=== PATIENT | female | born 1990 | race Caucasian/White ===

== ENCOUNTER 2021-03-01 01:21 | Inpatient (IN) | payer OTHER ==
[2021-03-01] MEDS ORDERED: SODIUM CHLORIDE 0.9% 1000 ML 1,000 ML IV ONE (01:34)
--- NOTE | 2021-03-01 01:36 | Emergency Department Report ---
History of Present Illness - General Chief Complaint: Overdose Stated Complaint: SUICIDE ATTEMPT Time Seen by Provider: 03/01/21 01:21 Source: patient Mode of arrival: Stretcher Limitations: No Limitations - History of Present Illness Initial Comments: Patient is a 30-year-old female that presents emergency room for overdose. Patient brought in by EMS. EMS states the patient took 60 tablets of 500 mg Tylenol and 50 tablets of 25 mg Vistaril approximately 45 minutes prior to arrival. Patient's friend called EMS. Patient states that she was trying to kill herself. Patient states she does not want to live. Patient states she took all these medications with the intent to . Patient states she has been depressed. Patient states she feels tired. Patient states she does not want help. Patient states she wants to be left alone. Patient denies recent travel. Patient denies recent international travel. Patient denies exposure to the novel coronavirus. Patient denies sick contacts. Patient denies fever and chills. Patient denies cough. Patient denies diarrhea. Patient denies coming in contact with anybody with symptoms of the n ovel coronavirus. Complaint: intentional overdose -: Sudden Intent: suicide attempt How Overdose Was Discovered: called family/friend Associated Symptoms: depression Treatments Prior to Arrival: none - Related Data Allergies Allergy/AdvReac Type Severity Reaction Status Date / Time No Known Allergies Allergy Unverified 03/01/21 01:37 ED Review of Systems ROS: Stated complaint: SUICIDE ATTEMPT Other details as noted in HPI Constitutional: denies: chills, fever Eyes: denies: eye pain, eye discharge, vision change ENT: denies: ear pain, throat pain Respiratory: denies: cough, shortness of breath, wheezing Cardiovascular: denies: chest pain, palpitations Endocrine: no symptoms reported Gastrointestinal: denies: abdominal pain, nausea, diarrhea Genitourinary: denies: urgency, dysuria, discharge Musculoskeletal: denies: back pain, joint swelling, arthralgia Skin: denies: rash, lesions Neurological: denies: headache, weakness, paresthesias Psychiatric: as per HPI, depression, suicidal thoughts. denies: anxiety Hematological/Lymphatic: denies: easy bleeding, easy bruising ED Past Medical Hx - Past Medical History Previous Medical History?: Yes Hx Psychiatric Treatment: Yes - Surgical History Past Surgical History?: No - Family History Family history: no significant - Social History Smoking Status: Never Smoker Substance Use Type: None ED Physical Exam - General General appearance: in no apparent distress, lethargic - Head Head exam: Present: atraumatic, normocephalic - Eye Eye exam: Present: normal appearance - ENT ENT exam: Present: mucous membranes moist - Neck Neck exam: Present: normal inspection - Respiratory Respiratory exam: Present: normal lung sounds bilaterally. Absent: respiratory distress - Cardiovascular Cardiovascular Exam: Present: regular rate, normal rhythm. Absent: systolic murmur, diastolic murmur, rubs, gallop - GI/Abdominal GI/Abdominal exam: Present: soft, normal bowel sounds - Extremities Exam Extremities exam: Present: normal inspection - Back Exam Back exam: Present: normal inspection - Neurological Exam Neurological exam: Present: oriented X3 - Psychiatric Psychiatric exam: Present: depressed, flat affect, suicidal ideation - Skin Skin exam: Present: warm, dry, intact, normal color. Absent: rash ED Course Vital Signs 03/01/21 03/01/21 03/01/21 01:30 01:34 01:45 Temperature 98.3 F Pulse Rate 111 H 109 H 91 H Respiratory 29 H 20 17 Rate Blood Pressure 122/80 126/73 Blood Pressure 122/80 [Left] O2 Sat by Pulse 100 100 Oximetry 03/01/21 03/01/21 03/01/21 02:00 02:15 02:30 Temperature Pulse Rate 79 95 H 89 Respiratory 18 9 L 16 Rate Blood Pressure 114/58 109/79 112/67 Blood Pressure [Left] O2 Sat by Pulse 100 97 Oximetry 03/01/21 03/01/21 03/01/21 02:45 03:00 03:15 Temperature Pulse Rate 92 H 95 H 92 H Respiratory 18 20 19 Rate Blood Pressure 118/58 108/62 121/63 Blood Pressure [Left] O2 Sat by Pulse 97 99 94 Oximetry 03/01/21 03/01/21 03/01/21 03:30 03:45 04:00 Temperature Pulse Rate 92 H 90 100 H Respiratory 15 17 17 Rate Blood Pressure 118/68 104/59 101/68 Blood Pressure [Left] O2 Sat by Pulse 100 96 99 Oximetry 03/01/21 03/01/21 03/01/21 04:15 04:30 04:45 Temperature Pulse Rate 100 H 109 H 90 Respiratory 19 19 23 Rate Blood Pressure 109/66 116/73 129/74 Blood Pressure [Left] O2 Sat by Pulse 97 100 Oximetry 03/01/21 03/01/21 03/01/21 05:00 05:15 05:30 Temperature Pulse Rate 88 103 H 94 H Respiratory 17 21 17 Rate Blood Pressure 120/68 120/78 118/73 Blood Pressure [Left] O2 Sat by Pulse 94 99 100 Oximetry - Reevaluation(s) Reevaluation #1: Initial evaluation done. The nurse will contact poison control. Patient placed on a 1013. 03/01/21 01:32 Reevaluation #2: Recommendations have been received from poison control. Poison control recommends activated charcoal and the patient is not able to tolerate the p.o. intake and NG will be placed. 03/01/21 01:45 Reevaluation #3: Patient was able to take the activated charcoal orally. 03/01/21 02:32 Reevaluation #4: I discussed all results with patient. I discussed plan of care with patient. Patient agrees with plan of care and admission. Patient to be admitted to the hospitalist service. 03/01/21 03:33 - Consultations Consultation #1: Poison control consulted. 03/01/21 01:33 JOSELIN JOY Female : 1990 MedRec# [id number] 03/01/21 01:35 (created 03/01/21 03:14) - Nurse Note by PHYLLIS BURT Acct Num: [id number] : 1990 Patient Age: 30 Poison Control called and here are there recommendations: Recommendation 1. Acetaminophen- can cause hepatotoxicity, abd pain, n/v 2. Hydroxyzine- can cause tachycardia, seizures, hyperthermia, QRS widening. Plan 1. Maintain Airway 2. Gave activated charcoal 1gm/kg as long as the pt is not risk for aspiration or sedated. 3. Labs: Tylenol Level, CMP, CBC, INR, EKG, Repeat Tyleno level after 4 hours @ 4:35am 4. Symptomatic, supportive care. 5. For tachycardia agitation, seizures use Benzo 6. For n/v gave anti emetic and replace fluids. 7. If QRS > 100msec, call back Poison Control. 8. If QTC > 500 msec optimize electrolytes: K- 4.0, Mg- 2.0, Ca- 9.0 9. Call back Poison Control after the repeat Tylenol Level after 4 hours of for any abnormal labs. Talked to Tyron of Poison Control. Initialized on 03/01/21 03:14 - END OF NOTE Consultation #2: I discussed again with poison control the acetaminophen levels and they agree to the acetylcysteine being given. 03/01/21 03:29 Consultation #3: Hospitalist consulted for admission. Hospitalist to admit patient. 03/01/21 03:32 ED Medical Decision Making - Lab Data Result diagrams: 03/01/21 01:39 03/01/21 01:39 - EKG Data -: EKG Interpreted by Me EKG shows normal: sinus rhythm, axis, intervals, QRS complexes, ST-T waves Rate: normal - Medical Decision Making Patient is a 30-year-old female that presents emergency room for a suicide attempt by overdose. Patient took 60 tablets of 500 mg Tylenol and 50 tablets of 25 mg of Vistaril. Patient states she wants to . Patient states she does not want any help and just wants to be left alone. Patient brought in by EMS. Patient placed on a 1013 after initial evaluation. Poison control contacted immediately after initial evaluation. Recommendations were received. Activated charcoal given to patient and the patient tolerated oral activated charcoal without the NG tube. Patient was given 100 g of activated charcoal with sorbitol. Patient given IV fluids. Patient lethargic but easily arousable. Patient's labs were done which was unremarkable except for elevated Tylenol level. Based on the elevation Tylenol level I discussed with control and they agreed to moving forward with giving acetylcysteine to the patient. Patient medical consult reviewed x1 in the ER. Patient admitted to the hospital service for further evaluation treatment. Patient will placed in the ICU. Pulse control updated with the patient's conditions and labs multiple times while in the ER. Critical care time documented due to the multiple reassessments, prolonged time at the bedside, interpretation of diagnostics and labs. - Differential Diagnosis Suicide attempt, overdose, depression Critical Care Time: Yes Critical care time in (mins) excluding proc time.: 80 Critical care attestation.: If time is entered above; I have spent that time in minutes in the direct care of this critically ill patient, excluding procedure time. Critical Care Time: 80 minutes ED Disposition Clinical Impression: Suicidal ideations Overdose of acetaminophen Qualifiers: Encounter type: initial encounter Injury intent: intentional self-harm Qualified Code(s): T39.1X2A - Poisoning by 4-Aminophenol derivatives, intentional self-harm, initial encounter Suicide attempt by acetaminophen overdose Qualifiers: Encounter type: initial encounter Qualified Code(s): T39.1X2A - Poisoning by 4- Aminophenol derivatives, intentional self-harm, initial encounter Disposition: 09 OP ADMIT IP TO THIS HOSP Is pt being admited?: Yes Does the pt Need Aspirin: No Condition: Critical Time of Disposition: 03:34
[2021-03-01] MEDS ORDERED: CHARCOAL/SORBITOL SOLUTION 25 GM/120 ML PO ONE (01:45)
[2021-03-01 02:23] LABS: Alanine Aminotransferase 16 units/L (7-56); Albumin 4.3 g/dL (3.9-5); Blood Urea Nitrogen 3 mg/dL (7-17); Hemolysis Index 0
[2021-03-01 02:32] LABS: Basophils # (Auto) 0.1 K/mm3 (0.0-0.1); Basophils % (Auto) 0.6 % (0.0-1.8); Eosinophils # (Auto) 0.1 K/mm3 (0.0-0.4); Eosinophils % (Auto) 1.1 % (0.0-4.3); Hematocrit 28.2 % (30.3-42.9); Hemoglobin 8.5 gm/dl (10.1-14.3); Lymphocytes # (Auto) 3.8 K/mm3 (1.2-5.4); Lymphocytes % (Auto) 44.1 % (13.4-35.0); Mean Corpuscular HGB Conc 30 % (30-34); Monocytes # (Auto) 0.5 K/mm3 (0.0-0.8); Monocytes % (Auto) 6.2 % (0.0-7.3); Platelet Count 404 K/mm3 (140-440); Red Blood Count 4.26 M/mm3 (3.65-5.03); Red Cell Distribution Width 18.3 % (13.2-15.2)
[2021-03-01 02:40] LABS: BUN/Creatinine Ratio 8
[2021-03-01 02:43] LABS: INR 1.04 (0.87-1.13); Partial Thromboplastin Time 30.8 Sec. (24.2-36.6)
[2021-03-01 02:55] LABS: Mean Corpuscular Volume 66 fl (79-97)
[2021-03-01 03:29] LABS: Amphetamine Screen,Urine PRESUMPTIVE NEGATIVE; Benzodiazepines Screen,Urine PRESUMPTIVE NEGATIVE; Cannabinoid Screen,Urine PRESUMPTIVE NEGATIVE; Cocaine Screen,Urine PRESUMPTIVE NEGATIVE; Methadone Screen,Urine PRESUMPTIVE NEGATIVE; Opiate Screen,Urine PRESUMPTIVE NEGATIVE
[2021-03-01 03:35] LABS: HCG Qualitative,Urine Negative (Negative)
[2021-03-01 03:37] LABS: Bilirubin,Urine NEG (Negative); Blood,Urine NEG (Negative); Color,Urine Colorless (Yellow); Protein,Urine <15 mg/dL mg/dL (Negative); Urobilinogen,Urine < 2.0 mg/dL (<2.0); WBC,Urine < 1.0 /HPF (0.0-6.0)
[2021-03-01] MEDS ORDERED: ACETADOTE IV ONE ×3 (03:45→08:00)
[2021-03-01] MEDS ORDERED: WATER IV ONE ×3 (03:45→08:00)
[2021-03-01] MEDS ORDERED: DEXTROSE 5% IV ONE ×3 (03:45→08:00)
[2021-03-01] MEDS ORDERED: MAGNESIUM HYDROXIDE (MOM) ORAL LIQD UDC PO PRN (04:21)
[2021-03-01] MEDS ORDERED: ACETAMINOPHEN 325 MG TAB PO PRN (04:21)
[2021-03-01] MEDS ORDERED: ONDANSETRON 4 MG/2 ML INJ IV PRN (04:21)
[2021-03-01] MEDS ORDERED: SODIUM CHLORIDE 0.9% 1000 ML 1,000 ML IV SCH (04:30)
--- NOTE | 2021-03-01 04:33 | History and Physical Report ---
History of Present Illness Date of examination: 03/01/21 Date of admission: 03/01/21 03:33 Chief complaint: Drug Overdose History of present illness: Patient is a 30-year-old female with known history of depression brought into the emergency room today by EMS with drug overdose. Patient a set of taking 60 tablets of 500 mg acetaminophen and 50 tablets of 20 mg Vistaril approximately 45 minutes prior to arrival in the emergency room. Patient's friends were said to have called EMS as patient had indicated that she wanted to end her life and does not want to live anymore. She has been depressed and just feels tired and wants to be left alone without getting any help. She appeared drowsy during this history and physical. Patient denies any fever or chills, no nausea vomiting, no abdominal pain, no chest pain or shortness of breath, no headache or dizziness. Denies any sick contacts or any recent travel. Denies any contact with anyone with COVID-19. Upon arrival in the emergency room patient was given some activated charcoal. Poison control was also notified and recommendations were given for administration of acetylcysteine. Patient is being admitted with drug overdose with attempted suicide. Past History Past Medical History: other (Depression) Past Surgical History: denies: No surgical history Social history: denies: no significant social history Family history: denies: no significant family history Medications and Allergies Allergies Allergy/AdvReac Type Severity Reaction Status Date / Time No Known Allergies Allergy Unverified 03/01/21 01:37 Active Meds: Active Medications Heparin Sodium (Porcine) (Heparin 5,000 Unit/1 Ml Vial) 5,000 unit SUB-Q Q8HR [facility] Acetylcysteine 10,200 mg/ (Dextrose) 251 mls @ 251 mls/hr IV ONCE ONE Stop: 03/01/21 04:44 Last Admin: 03/01/21 03:58 Dose: 251 mls/hr Documented by: Acetylcysteine 3,400 mg/ (Dextrose) 517 mls @ 129.25 mls/hr IV ONCE ONE Stop: 03/01/21 08:44 Acetylcysteine 6,800 mg/ (Dextrose) 1,034 mls @ 64.625 mls/hr IV ONCE ONE Stop: 03/01/21 23:59 Sodium Chloride (Nacl 0.9% 1000 Ml) 1,000 mls @ 125 mls/hr IV DIRECT ERLINDA Magnesium Hydroxide (Magnesium Hydroxide (Mom) Oral Liqd Udc) 30 ml PO Q4H PRN PRN Reason: Constipation Ondansetron HCl (Ondansetron 4 Mg/2 Ml Inj) 4 mg IV Q8H PRN PRN Reason: Nausea And Vomiting Sodium Chloride (Sodium Chloride 0.9% 10 Ml Flush Syringe) 10 ml IV BID ERLINDA Sodium Chloride (Sodium Chloride 0.9% 10 Ml Flush Syringe) 10 ml IV PRN PRN PRN Reason: LINE FLUSH Review of Systems Constitutional: no fever, no chills Ears, nose, mouth and throat: no nasal congestion, no sore throat Cardiovascular: no chest pain, no palpitations Respiratory: no cough, no shortness of breath Gastrointestinal: no nausea, no vomiting, no diarrhea Genitourinary Female: no pelvic pain, no flank pain, no dysuria Musculoskeletal: no neck pain, no low back pain Integumentary: no rash, no pruritis Neurological: no headaches, no confusion Psychiatric: suicidal ideation, depression, no anxiety Endocrine: no polyphagia, no polydipsia, no polyuria, no nocturia Exam - Constitutional Vitals: Temp Pulse Resp BP Pulse Ox 98.3 F 100 H 17 101/68 99 03/01/21 01:34 03/01/21 04:00 03/01/21 04:00 03/01/21 04:00 03/01/21 04:00 General appearance: Present: no acute distress, well-nourished - EENT Eyes: Present: PERRL, EOM intact. Absent: scleral icterus ENT: hearing intact, clear oral mucosa, dentition normal - Neck Neck: Present: supple, normal ROM - Respiratory Respiratory effort: normal Respiratory: bilateral: CTA - Cardiovascular Rhythm: regular Heart Sounds: Present: S1 & S2. Absent: systolic murmur, diastolic murmur - Extremities Extremities: no ischemia, pulses intact, pulses symmetrical, No edema, normal temperature, normal color, Full ROM Peripheral Pulses: within normal limits - Abdominal General gastrointestinal: Present: soft, non-tender, non-distended, normal bowel sounds. Absent: mass - Integumentary Integumentary: Present: clear, warm, dry, normal turgor. Absent: rash - Musculoskeletal Musculoskeletal: strength equal bilaterally - Psychiatric Psychiatric: cooperative, depressed, other (Appeared drowsy) - Neurologic Neurologic: CNII-XII intact, no focal deficits, moves all extremities Results - Labs CBC & Chem 7: 03/01/21 01:39 03/01/21 01:39 Labs: Abnormal lab results 03/01/21 03/01/21 03/01/21 Range/Units 01:38 01:39 01:39 Hgb 8.5 L (10.1-14.3) gm/dl Hct 28.2 L (30.3-42.9) % MCV 66 L (79-97) fl MCH 20 L (28-32) pg RDW 18.3 H (13.2-15.2) % Lymph % (Auto) 44.1 H (13.4-35.0) % Potassium 3.5 L (3.6-5.0) mmol/L Carbon Dioxide 15 L (22-30) mmol/L BUN 3 L (7-17) mg/dL Creatinine 0.4 L (0.6-1.2) mg/dL Ur Specific [place] 1.002 L (1.003-1.030) Salicylates (2.8-20.0) mg/dL Acetaminophen (10.0-30.0) ug/mL 03/01/21 03/01/21 Range/Units 01:39 01:39 Hgb (10.1-14.3) gm/dl Hct (30.3-42.9) % MCV (79-97) fl MCH (28-32) pg RDW (13.2-15.2) % Lymph % (Auto) (13.4-35.0) % Potassium (3.6-5.0) mmol/L Carbon Dioxide (22-30) mmol/L BUN (7-17) mg/dL Creatinine (0.6-1.2) mg/dL Ur Specific [place] (1.003-1.030) Salicylates < 0.3 L (2.8-20.0) mg/dL Acetaminophen 181.4 H (10.0-30.0) ug/mL Assessment and Plan - Patient Problems (1) Overdose of acetaminophen Current Visit: Yes Status: Acute Qualifiers: Encounter type: initial encounter Injury intent: intentional self-harm Qu alified Code(s): T39.1X2A - Poisoning by 4-Aminophenol derivatives, intentional self-harm, initial encounter Plan to address problem: Patient started on acetylcysteine according to protocol. We will monitor labs including liver enzymes. (2) Suicide attempt by acetaminophen overdose Current Visit: Yes Status: Acute Qualifiers: Encounter type: initial encounter Qualified Code(s): T39.1X2A - Poisoning by 4-Aminophenol derivatives, intentional self-harm, initial encounter Plan to address problem: Consult placed to mental health for evaluation and recommendations. (3) DVT prophylaxis Current Visit: Yes Status: Acute Plan to address problem: Patient placed on subcutaneous heparin. (4) Full code status Current Visit: Yes Status: Acute Plan to address problem: Patient is full code.
[2021-03-01] MEDS: HEPARIN 5,000 UNIT/1 ML VIAL SUB-Q SCH ×2 (05:44→22:57)
[2021-03-01] MEDS ORDERED: POTASSIUM CHLORIDE 10 MEQ 10 MEQ/100 ML BAG IV ONE (07:30)
--- NOTE | 2021-03-01 09:48 | Event Note ---
Date: 03/01/21 This is a follow-up from an admission earlier this morning. Patient seen and examined. We will continue to plan as outlined in H&P. Total visit time equals 35 minutes with greater than 50% spent on coordination of care and counseling.
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
[2021-03-02 01:34] LABS: INR 1.08 (0.87-1.13)
[2021-03-02 01:47] LABS: Alanine Aminotransferase 12 units/L (7-56); Albumin 3.8 g/dL (3.9-5); Blood Urea Nitrogen 4 mg/dL (7-17); Calcium 8.8 mg/dL (8.4-10.2); Hemolysis Index 0
[2021-03-02 02:02] LABS: BUN/Creatinine Ratio 13
[2021-03-02] MEDS: HEPARIN 5,000 UNIT/1 ML VIAL SUB-Q SCH ×4 (06:10→22:49)
[2021-03-02 06:13] LABS: Blood Urea Nitrogen 4 mg/dL (7-17); Calcium 8.7 mg/dL (8.4-10.2); Hemolysis Index 5
[2021-03-02 06:28] LABS: BUN/Creatinine Ratio 10
[2021-03-02 06:31] LABS: INR 1.08 (0.87-1.13)
[2021-03-02 06:35] LABS: Eosinophils # (Auto) 0.1 K/mm3 (0.0-0.4); Eosinophils % (Auto) 1.9 % (0.0-4.3); Hematocrit 25.2 % (30.3-42.9); Hemoglobin 7.6 gm/dl (10.1-14.3); Mean Corpuscular HGB Conc 30 % (30-34); Monocytes # (Auto) 0.6 K/mm3 (0.0-0.8); Platelet Count 375 K/mm3 (140-440); Red Blood Count 3.81 M/mm3 (3.65-5.03); Red Cell Distribution Width 18.2 % (13.2-15.2)
[2021-03-02 06:36] LABS: Basophils % (Auto) 0.5 % (0.0-1.8); Lymphocytes # (Auto) 2.9 K/mm3 (1.2-5.4); Lymphocytes % (Auto) 45.3 % (13.4-35.0); Mean Corpuscular Volume 66 fl (79-97)
--- NOTE | 2021-03-02 08:39 | Progress Note ---
Assessment and Plan Assessment and plan: Acetaminophen overdose. Suicide attempt/ideation. EtOH abuse. 03/02: Acetaminophen level on admission (03/01) was 181 and 115 3 hours later. Acetaminophen this morning at 1 AM 5.0. Check LFTs and consult GI for further evaluation. Continue Acetadote. Psychiatry following History Interval history: No new issues overnight. Hospitalist Physical - Constitutional Vitals: Temp Pulse Resp BP Pulse Ox 97.9 F 94 H 14 137/100 100 03/02/21 08:00 03/02/21 08:00 03/02/21 08:00 03/02/21 08:00 03/02/21 08:00 General appearance: Present: no acute distress, well-nourished - EENT Eyes: Present: PERRL, EOM intact ENT: hearing intact, clear oral mucosa, dentition normal - Neck Neck: Present: supple, normal ROM - Respiratory Respiratory effort: normal Respiratory: bilateral: CTA - Cardiovascular Rhythm: regular Heart Sounds: Present: S1 & S2. Absent: gallop, rub - Extremities Extremities: no ischemia, No edema, Full ROM - Abdominal General gastrointestinal: soft, non-tender, non-distended, normal bowel sounds - Integumentary Integumentary: Present: clear, warm, dry - Neurologic Neurologic: CNII-XII intact, moves all extremities Results - Labs CBC & Chem 7: 03/02/21 04:20 03/02/21 04:20 Labs: Laboratory Last Values WBC 6.3 K/mm3 (4.5-11.0) 03/02/21 04:20 RBC 3.81 M/mm3 (3.65-5.03) 03/02/21 04:20 Hgb 7.6 gm/dl (10.1-14.3) L 03/02/21 04:20 Hct 25.2 % (30.3-42.9) L 03/02/21 04:20 MCV 66 fl (79-97) L 03/02/21 04:20 MCH 20 pg (28-32) L 03/02/21 04:20 MCHC 30 % (30-34) 03/02/21 04:20 RDW 18.2 % (13.2-15.2) H 03/02/21 04:20 Plt Count 375 K/mm3 (140-440) 03/02/21 04:20 Lymph % (Auto) 45.3 % (13.4-35.0) H 03/02/21 04:20 [place] % (Auto) 9.0 % (0.0-7.3) H 03/02/21 04:20 Eos % (Auto) 1.9 % (0.0-4.3) 03/02/21 04:20 Baso % (Auto) 0.5 % (0.0-1.8) 03/02/21 04:20 Lymph # (Auto) 2.9 K/mm3 (1.2-5.4) 03/02/21 04:20 [place] # (Auto) 0.6 K/mm3 (0.0-0.8) 03/02/21 04:20 Eos # (Auto) 0.1 K/mm3 (0.0-0.4) 03/02/21 04:20 Baso # (Auto) 0.0 K/mm3 (0.0-0.1) 03/02/21 04:20 Seg Neutrophils % 43.3 % (40.0-70.0) 03/02/21 04:20 Seg Neutrophils # 2.7 K/mm3 (1.8-7.7) 03/02/21 04:20 PT 13.9 Sec. (12.2-14.9) 03/02/21 04:20 INR 1.08 (0.87-1.13) 03/02/21 04:20 APTT 30.8 Sec. (24.2-36.6) 03/01/21 01:47 Sodium 139 mmol/L (137-145) 03/02/21 04:20 Potassium 3.3 mmol/L (3.6-5.0) L 03/02/21 04:20 Chloride 105.7 mmol/L (98-107) 03/02/21 04:20 Carbon Dioxide 25 mmol/L (22-30) 03/02/21 04:20 Anion Gap 12 mmol/L 03/02/21 04:20 BUN 4 mg/dL (7-17) L 03/02/21 04:20 Creatinine 0.4 mg/dL (0.6-1.2) L 03/02/21 04:20 Estimated GFR > 60 ml/min 03/02/21 04:20 BUN/Creatinine Ratio 10 % 03/02/21 04:20 Glucose 96 mg/dL (65-100) 03/02/21 04:20 Calcium 8.7 mg/dL (8.4-10.2) 03/02/21 04:20 Total Bilirubin 0.30 mg/dL (0.1-1.2) 03/02/21 00:40 AST 12 units/L (5-40) 03/02/21 00:40 ALT 12 units/L (7-56) 03/02/21 00:40 Alkaline Phosphatase 44 units/L (35-129) 03/02/21 00:40 Total Protein 6.7 g/dL (6.3-8.2) 03/02/21 00:40 Albumin 3.8 g/dL (3.9-5) L 03/02/21 00:40 Albumin/Globulin Ratio 1.3 % 03/02/21 00:40 Urine Color Colorless (Yellow) 03/01/21 01:38 Urine Turbidity Clear (Clear) 03/01/21 01:38 Urine pH 6.0 (5.0-7.0) 03/01/21 01:38 Ur Specific [place] 1.002 (1.003-1.030) L 03/01/21 01:38 Urine Protein <15 mg/dl mg/dL (Negative) 03/01/21 01:38 Urine Glucose (UA) Neg mg/dL (Negative) 03/01/21 01:38 Urine Ketones Neg mg/dL (Negative) 03/01/21 01:38 Urine Blood Neg (Negative) 03/01/21 01:38 Urine Nitrite Neg (Negative) 03/01/21 01:38 Ur Reducing Substances Not Reportable 03/01/21 01:38 Urine Bilirubin Neg (Negative) 03/01/21 01:38 Urine Ictotest Not Reportable 03/01/21 01:38 Urine Urobilinogen < 2.0 mg/dL (<2.0) 03/01/21 01:38 Ur Leukocyte Esterase Neg (Negative) 03/01/21 01:38 Urine WBC (Auto) < 1.0 /HPF (0.0-6.0) 03/01/21 01:38 Urine RBC (Auto) 0.0 /HPF (0.0-6.0) 03/01/21 01:38 Urine HCG, Qual Negative (Negative) 03/01/21 01:38 Salicylates < 0.3 mg/dL (2.8-20.0) L 03/01/21 01:39 Urine Opiates Screen Presumptive negative 03/01/21 01:38 Urine Methadone Screen Presumptive negative 03/01/21 01:38 Acetaminophen 5.0 ug/mL (10.0-30.0) L 03/02/21 00:40 Ur Barbiturates Screen Presumptive negative 03/01/21 01:38 Ur Phencyclidine Scrn Presumptive negative 03/01/21 01:38 Ur Amphetamines Screen Presumptive negative 03/01/21 01:38 U Benzodiazepines Scrn Presumptive negative 03/01/21 01:38 Urine Cocaine Screen Presumptive negative 03/01/21 01:38 U Marijuana (THC) Screen Presumptive negative 03/01/21 01:38 Drugs of Abuse Note Disclamer 03/01/21 01:38 Plasma/Serum Alcohol 0.16 % (0-0.07) H 03/01/21 04:40 [place]yon/IV: Voiding Method Toilet Active Medications - Current Medications Current Medications: Generic Name Dose Route Start Last Admin Trade Name Freq PRN Reason Stop Dose Admin Heparin Sodium (Porcine) 5,000 unit 03/01/21 06:00 03/02/21 06:10 Heparin 5,000 Unit/1 Ml Vial SUB-Q 5,000 unit Q8HR ERLINDA Administration Sodium Chloride 1,000 mls @ 125 mls/hr 03/01/21 04:30 03/01/21 23:00 Nacl 0.9% 1000 Ml IV 125 mls/hr DIRECT ERLINDA Administration Magnesium Hydroxide 30 ml 03/01/21 04:21 Magnesium Hydroxide (Mom) Oral Liqd Udc PO Q4H PRN Constipation Ondansetron HCl 4 mg 03/01/21 04:21 03/01/21 04:45 Ondansetron 4 Mg/2 Ml Inj IV 4 mg Q8H PRN Administration Nausea And Vomiting Sodium Chloride 10 ml 03/01/21 10:00 03/01/21 22:58 Sodium Chloride 0.9% 10 Ml Flush Syringe IV 10 ml BID ERLINDA Administration Sodium Chloride 10 ml 03/01/21 04:21 Sodium Chloride 0.9% 10 Ml Flush Syringe IV PRN PRN LINE FLUSH
[2021-03-02] MEDS ORDERED: POTASSIUM CHLORIDE ER 20 MEQ TAB PO ONE (09:11)
--- NOTE | 2021-03-02 10:07 | Gastroenterology Consultation ---
History of Present Illness - Reason for Consult Consult date: 03/02/21 Tylenol OD Requesting physician: BRIAN TURNER - History of Present Illness The patient is a 30 yo female who presented to the ER after taking "a whole bottle" of tylenol in an OD attempt. In the ER notes, it was about 50 tylenol and vistaril tablets as well; currently she states she spit out the vistaril and only took the tylenol. Of note, her EtOH level was also elevated; a UDS was negative, but there is a hx of cocaine in the past. The patient states she also attempted suicide in 2018 with tylenol, and was hospitalized in [place]; she does not know the details, but was not evaluated for liver transplant. She currently has no N/V, bleeding, abdominal pain, confusion or delerium. Past History Past Medical History: other (Depression; prior suicide attempt (2018)) Past Surgical History: denies: No surgical history Social history: denies: no significant social history Family history: denies: no significant family history Medications and Allergies Allergies Allergy/AdvReac Type Severity Reaction Status Date / Time No Known Allergies Allergy Unverified 03/01/21 01:37 Home Medications Medication Instructions Recorded Confirmed Last Taken Type No Known Home Medications [No 03/01/21 03/01/21 Unknown History Reported Home Medications] Active Meds: Active Medications Heparin Sodium (Porcine) (Heparin 5,000 Unit/1 Ml Vial) 5,000 unit SUB-Q Q8HR [facility] Last Admin: 03/02/21 06:10 Dose: 5,000 unit Documented by: Acetylcysteine 10,200 mg/ (Dextrose) 251 mls @ 251 mls/hr IV ONCE ONE Stop: 03/02/21 11:29 Magnesium Hydroxide (Magnesium Hydroxide (Mom) Oral Liqd Udc) 30 ml PO Q4H PRN PRN Reason: Constipation Multivitamins (Multivitamins ,Therapeutic Tab) 1 each PO QDAY [facility] Ondansetron HCl (Ondansetron 4 Mg/2 Ml Inj) 4 mg IV Q8H PRN PRN Reason: Nausea And Vomiting Last Admin: 03/01/21 04:45 Dose: 4 mg Documented by: Sodium Chloride (Sodium Chloride 0.9% 10 Ml Flush Syringe) 10 ml IV BID [facility] Last Admin: 03/01/21 22:58 Dose: 10 ml Documented by: Sodium Chloride (Sodium Chloride 0.9% 10 Ml Flush Syringe) 10 ml IV PRN PRN PRN Reason: LINE FLUSH I HAVE REVIEWED AND RECONCILED ALL MEDICATIONS Review of Systems - Review of Systems All systems: negative (as noted in the HPI.) Exam - Constitutional Vital Signs: Temp Pulse Resp BP Pulse Ox 97.9 F 94 H 14 137/100 100 03/02/21 08:00 03/02/21 08:00 03/02/21 08:00 03/02/21 08:00 03/02/21 08:00 General appearance: no acute distress - EENT Eyes: PERRL, EOM intact - Neck Neck: supple, normal ROM - Respiratory Respiratory effort: normal Respiratory: bilateral: CTA - Cardiovascular Rhythm: regular Heart Sounds: Present: S1 & S2 Extremities: no ischemia, No edema - Gastrointestinal General gastrointestinal: Present: soft, non-tender, non-distended - Integumentary Integumentary: Present: clear, warm, dry - Neurologic Neurological: alert and oriented x3, other (No asterixis) - Labs CBC & Chem 7: 03/02/21 04:20 03/02/21 04:20 Lab Results: Laboratory Results - last 24 hr 03/02/21 03/02/21 03/02/21 00:40 00:40 00:40 WBC RBC Hgb Hct MCV MCH MCHC RDW Plt Count Lymph % (Auto) [place] % (Auto) Eos % (Auto) Baso % (Auto) Lymph # (Auto) [place] # (Auto) Eos # (Auto) Baso # (Auto) Seg Neutrophils % Seg Neutrophils # PT 13.9 INR 1.08 Sodium 139 Potassium 3.8 Chloride 106.3 Carbon Dioxide 23 D Anion Gap 14 BUN 4 L Creatinine 0.3 L Estimated GFR > 60 BUN/Creatinine Ratio 13 Glucose 81 Calcium 8.8 Total Bilirubin 0.30 AST 12 ALT 12 Alkaline Phosphatase 44 Total Protein 6.7 Albumin 3.8 L Albumin/Globulin Ratio 1.3 Acetaminophen 5.0 L 03/02/21 03/02/21 03/02/21 04:20 04:20 04:20 WBC 6.3 RBC 3.81 Hgb 7.6 L Hct 25.2 L MCV 66 L MCH 20 L MCHC 30 RDW 18.2 H Plt Count 375 Lymph % (Auto) 45.3 H [place] % (Auto) 9.0 H Eos % (Auto) 1.9 Baso % (Auto) 0.5 Lymph # (Auto) 2.9 [place] # (Auto) 0.6 Eos # (Auto) 0.1 Baso # (Auto) 0.0 Seg Neutrophils % 43.3 Seg Neutrophils # 2.7 PT 13.9 INR 1.08 Sodium 139 Potassium 3.3 L Chloride 105.7 Carbon Dioxide 25 Anion Gap 12 BUN 4 L Creatinine 0.4 L Estimated GFR > 60 BUN/Creatinine Ratio 10 Glucose 96 Calcium 8.7 Total Bilirubin AST ALT Alkaline Phosphatase Total Protein Albumin Albumin/Globulin Ratio Acetaminophen Assessment and Plan - Patient Problems (1) Suicide attempt by acetaminophen overdose Current Visit: Yes Status: Acute Qualifiers: Encounter type: initial encounter Qualified Code(s): T39.1X2A - Poisoning by 4-Aminophenol derivatives, intentional self-harm, initial encounter Plan to address problem: - The patient has completed acetadote, and has a normal INR, LFTs, and no signs of encephalopathy. - OK to transfer to floor for 24 more hours; if labs tomorrow OK, then may d/c to home or psych facility. - Will stop IV fluids, advance diet, and place on MVI. - If signs of decompensation, will contact liver transplant center.
[2021-03-02] MEDS ORDERED: DEXTROSE 5% IV ONE (10:30)
[2021-03-02] MEDS ORDERED: ACETADOTE IV ONE (10:30)
[2021-03-02] MEDS ORDERED: WATER IV ONE (10:30)
[2021-03-02] MEDS: MULTIVITAMINS ,THERAPEUTIC TAB PO SCH (12:21)
[2021-03-02 14:58] LABS: Alanine Aminotransferase 12 units/L (7-56); Albumin 3.5 g/dL (3.9-5)
[2021-03-02 15:00] LABS: Bilirubin,Direct < 0.2 mg/dL (0-0.2)
--- NOTE | 2021-03-02 18:24 | Event Note ---
Date: 03/02/21 Admitted to ICU for drug OD but doing better and transferred out of ICU before my evaluation - please re-consult as necessary
[2021-03-03] MEDS: HEPARIN 5,000 UNIT/1 ML VIAL SUB-Q SCH ×3 (05:40→22:18)
--- NOTE | 2021-03-03 08:06 | Progress Note ---
Assessment and Plan Assessment and plan: Acetaminophen overdose. Suicide attempt/ideation. EtOH abuse. 03/02: Acetaminophen level on admission (03/01) was 181 and 115 3 hours later. Acetaminophen this morning at 1 AM 5.0. Check LFTs and consult GI for further evaluation. Continue Acetadote. Psychiatry following 03/03: Follow-up LFTs as patient is likely stable from liver/GI standpoint. Continue 1013. Await psychiatry recommendations for disposition. History Interval history: No new issues overnight. Hospitalist Physical - Constitutional Vitals: Temp Pulse Resp BP Pulse Ox 98.2 F 73 12 117/81 99 03/03/21 06:31 03/03/21 06:31 03/03/21 06:31 03/03/21 06:31 03/03/21 06:31 General appearance: Present: no acute distress, well-nourished - EENT Eyes: Present: PERRL, EOM intact ENT: hearing intact, clear oral mucosa, dentition normal - Neck Neck: Present: supple, normal ROM - Respiratory Respiratory effort: normal Respiratory: bilateral: CTA - Cardiovascular Rhythm: regular Heart Sounds: Present: S1 & S2. Absent: gallop, rub - Extremities Extremities: no ischemia, No edema, Full ROM - Abdominal General gastrointestinal: soft, non-tender, non-distended, normal bowel sounds - Integumentary Integumentary: Present: clear, warm, dry - Neurologic Neurologic: CNII-XII intact, moves all extremities Results - Labs CBC & Chem 7: 03/02/21 04:20 03/02/21 04:20 Labs: Laboratory Last Values WBC 6.3 K/mm3 (4.5-11.0) 03/02/21 04:20 RBC 3.81 M/mm3 (3.65-5.03) 03/02/21 04:20 Hgb 7.6 gm/dl (10.1-14.3) L 03/02/21 04:20 Hct 25.2 % (30.3-42.9) L 03/02/21 04:20 MCV 66 fl (79-97) L 03/02/21 04:20 MCH 20 pg (28-32) L 03/02/21 04:20 MCHC 30 % (30-34) 03/02/21 04:20 RDW 18.2 % (13.2-15.2) H 03/02/21 04:20 Plt Count 375 K/mm3 (140-440) 03/02/21 04:20 Lymph % (Auto) 45.3 % (13.4-35.0) H 03/02/21 04:20 [place] % (Auto) 9.0 % (0.0-7.3) H 03/02/21 04:20 Eos % (Auto) 1.9 % (0.0-4.3) 03/02/21 04:20 Baso % (Auto) 0.5 % (0.0-1.8) 03/02/21 04:20 Lymph # (Auto) 2.9 K/mm3 (1.2-5.4) 03/02/21 04:20 [place] # (Auto) 0.6 K/mm3 (0.0-0.8) 03/02/21 04:20 Eos # (Auto) 0.1 K/mm3 (0.0-0.4) 03/02/21 04:20 Baso # (Auto) 0.0 K/mm3 (0.0-0.1) 03/02/21 04:20 Seg Neutrophils % 43.3 % (40.0-70.0) 03/02/21 04:20 Seg Neutrophils # 2.7 K/mm3 (1.8-7.7) 03/02/21 04:20 PT 13.9 Sec. (12.2-14.9) 03/02/21 04:20 INR 1.08 (0.87-1.13) 03/02/21 04:20 APTT 30.8 Sec. (24.2-36.6) 03/01/21 01:47 Sodium 139 mmol/L (137-145) 03/02/21 04:20 Potassium 3.3 mmol/L (3.6-5.0) L 03/02/21 04:20 Chloride 105.7 mmol/L (98-107) 03/02/21 04:20 Carbon Dioxide 25 mmol/L (22-30) 03/02/21 04:20 Anion Gap 12 mmol/L 03/02/21 04:20 BUN 4 mg/dL (7-17) L 03/02/21 04:20 Creatinine 0.4 mg/dL (0.6-1.2) L 03/02/21 04:20 Estimated GFR > 60 ml/min 03/02/21 04:20 BUN/Creatinine Ratio 10 % 03/02/21 04:20 Glucose 96 mg/dL (65-100) 03/02/21 04:20 Calcium 8.7 mg/dL (8.4-10.2) 03/02/21 04:20 Total Bilirubin < 0.20 mg/dL (0.1-1.2) 03/02/21 14:35 Direct Bilirubin < 0.2 mg/dL (0-0.2) 03/02/21 14:35 Indirect Bilirubin 0.0 mg/dL 03/02/21 14:35 AST 12 units/L (5-40) 03/02/21 14:35 ALT 12 units/L (7-56) 03/02/21 14:35 Alkaline Phosphatase 48 units/L (35-129) 03/02/21 14:35 Total Protein 6.3 g/dL (6.3-8.2) 03/02/21 14:35 Albumin 3.5 g/dL (3.9-5) L 03/02/21 14:35 Albumin/Globulin Ratio 1.3 % 03/02/21 14:35 Urine Color Colorless (Yellow) 03/01/21 01:38 Urine Turbidity Clear (Clear) 03/01/21 01:38 Urine pH 6.0 (5.0-7.0) 03/01/21 01:38 Ur Specific [place] 1.002 (1.003-1.030) L 03/01/21 01:38 Urine Protein <15 mg/dl mg/dL (Negative) 03/01/21 01:38 Urine Glucose (UA) Neg mg/dL (Negative) 03/01/21 01:38 Urine Ketones Neg mg/dL (Negative) 03/01/21 01:38 Urine Blood Neg (Negative) 03/01/21 01:38 Urine Nitrite Neg (Negative) 03/01/21 01:38 Ur Reducing Substances Not Reportable 03/01/21 01:38 Urine Bilirubin Neg (Negative) 03/01/21 01:38 Urine Ictotest Not Reportable 03/01/21 01:38 Urine Urobilinogen < 2.0 mg/dL (<2.0) 03/01/21 01:38 Ur Leukocyte Esterase Neg (Negative) 03/01/21 01:38 Urine WBC (Auto) < 1.0 /HPF (0.0-6.0) 03/01/21 01:38 Urine RBC (Auto) 0.0 /HPF (0.0-6.0) 03/01/21 01:38 Urine HCG, Qual Negative (Negative) 03/01/21 01:38 Salicylates < 0.3 mg/dL (2.8-20.0) L 03/01/21 01:39 Urine Opiates Screen Presumptive negative 03/01/21 01:38 Urine Methadone Screen Presumptive negative 03/01/21 01:38 Acetaminophen 5.0 ug/mL (10.0-30.0) L 03/02/21 00:40 Ur Barbiturates Screen Presumptive negative 03/01/21 01:38 Ur Phencyclidine Scrn Presumptive negative 03/01/21 01:38 Ur Amphetamines Screen Presumptive negative 03/01/21 01:38 U Benzodiazepines Scrn Presumptive negative 03/01/21 01:38 Urine Cocaine Screen Presumptive negative 03/01/21 01:38 U Marijuana (THC) Screen Presumptive negative 03/01/21 01:38 Drugs of Abuse Note Disclamer 03/01/21 01:38 Plasma/Serum Alcohol 0.16 % (0-0.07) H 03/01/21 04:40 [place]/IV: Voiding Method Toilet Active Medications - Current Medications Current Medications: Generic Name Dose Route Start Last Admin Trade Name Freq PRN Reason Stop Dose Admin Heparin Sodium (Porcine) 5,000 unit 03/01/21 06:00 03/03/21 05:40 Heparin 5,000 Unit/1 Ml Vial SUB-Q 5,000 unit Q8HR ERLINDA Administration Magnesium Hydroxide 30 ml 03/01/21 04:21 Magnesium Hydroxide (Mom) Oral Liqd Udc PO Q4H PRN Constipation Multivitamins 1 each 03/02/21 11:00 03/02/21 12:21 Multivitamins ,Therapeutic Tab PO 1 each QDAY ERLINDA Administration Ondansetron HCl 4 mg 03/01/21 04:21 03/01/21 04:45 Ondansetron 4 Mg/2 Ml Inj IV 4 mg Q8H PRN Administration Nausea And Vomiting Sodium Chloride 10 ml 03/01/21 10:00 03/02/21 22:49 Sodium Chloride 0.9% 10 Ml Flush Syringe IV 10 ml BID ERLINDA Administration Sodium Chloride 10 ml 03/01/21 04:21 Sodium Chloride 0.9% 10 Ml Flush Syringe IV PRN PRN LINE FLUSH
[2021-03-03 09:09] LABS: INR 1.03 (0.87-1.13)
[2021-03-03 09:11] LABS: Alanine Aminotransferase 13 units/L (7-56); Albumin 3.7 g/dL (3.9-5); Blood Urea Nitrogen 6 mg/dL (7-17); Calcium 9.1 mg/dL (8.4-10.2); Hemolysis Index 20
[2021-03-03 09:13] LABS: BUN/Creatinine Ratio 15; Bilirubin,Direct < 0.2 mg/dL (0-0.2)
--- NOTE | 2021-03-03 09:17 | Progress Note ---
Subjective - Reason for Consult Consult date: 03/03/21 Reason for consult: MHE Requesting physician: BRIAN TURNER - Chief Complaint Chief complaint: Psych Progress Patient seen this AM, patient reports feeling bad about her actions, reported having a conversation with her BF on phone on what she could have done better and address the situation rather than overdosing on pills and doing what she did. She states she rarely speaks with her kids as they her with Grandma and grandma does not allow communication at the moment but her family knows she is currently in the hospital. She endorses sleeping well and eating good, no SI, HI or AVH REVIEW OF SYSTEMS Constitutional: Negative for weight loss ENT: Negative for stridor Respiratory: Negative for cough or hemoptysis All other systems reviewed and are negative MENTAL STATUS EXAMINATION General Appearance and Behavior: Age appropriate, good hygiene, wearing appropriate clothes, good eye contact, cooperative polite with questioning. Cooperation: Participating/engaged Psychomotor Behavior: unremarkable and within normal limits Mood: "i feel bad" Affect and affective range: congruent with mood Thought Process: Fluent/Logical, Thought Content: Within reality, Speech: Normal volume, Regular rate and rhythm, Intellectual Functioning: Average Suicidal Ideation: Denies SI Homicidal Ideation: Denies HI Impulse Control: Unimpaired Insight and Judgment: Normal insight and judgment, Memory: Normal, Attention: Normal, Orientation: Alert, oriented, Assessment and Plan - Psychiatric problem (1) MDD (major depressive disorder), recurrent episode, severe Current Visit: Yes Status: Acute F33.2 Treatment Plan NO psych meds until cleared by poison control MEDICATIONS: Risks, benefits and alternatives of medications discussed with the patient, questions answered and consent obtained from patient. PSYCHOTHERAPY: Supportive psychotherapy provided MEDICAL: Per primary team DELIRIUM PRECAUTIONS: Please re-orient patient frequently, keep lights on during the day, and minimize benzodiazepines and opiates as these medications could worsen patient's confusion. INTERNAL CONTROLS MANAGER: DISPOSITION: Do Recommend acute inpatient psychiatric hospitalization at this time. Case discussed with Dr. Mosley who agrees with current disposition LEGAL STATUS: 1013 FOLLOW-UP: Will follow Thank you for the consult. Please contact with any questions and/or concerns. Mental Status Exam - Vital signs Last Vital Signs Temp 98.2 F 03/03/21 06:31 Pulse 73 03/03/21 06:31 Resp 12 03/03/21 06:31 BP 117/81 03/03/21 06:31 Pulse Ox 99 03/03/21 06:31 Assessment and Plan - Patient Problems (1) MDD (major depressive disorder), recurrent episode, severe Current Visit: Yes Status: Acute
[2021-03-03] MEDS: MULTIVITAMINS ,THERAPEUTIC TAB PO SCH (09:33)
--- NOTE | 2021-03-03 11:38 | Gastroenterology Progress Note ---
Assessment and Plan - Patient Problems (1) Suicide attempt by acetaminophen overdose Current Visit: Yes Status: Acute Qualifiers: Encounter type: initial encounter Qualified Code(s): T39.1X2A - Poisoning by 4-Aminophenol derivatives, intentional self-harm, initial encounter Plan to address problem: - The patient has completed acetadote, and has a normal INR, LFTs, and no signs of encephalopathy. - OK to d/c to home or psych facility. - Will sign off; please call if needed. Subjective Date of service: 03/03/21 Principal diagnosis: Tylenol OD Interval history: The patient has no N/V/abdominal pain, and is tolerating a regular diet. Objective - Constitutional Vitals: Temp Pulse Resp BP Pulse Ox 98.7 F 92 H 18 129/79 99 03/03/21 10:24 03/03/21 10:24 03/03/21 10:24 03/03/21 10:24 03/03/21 10:24 General appearance: no acute distress - Neck Neck: supple, normal ROM - Respiratory Respiratory effort: normal Respiratory: bilateral: CTA - Cardiovascular Rhythm: regular Heart Sounds: Present: S1 & S2 - Gastrointestinal General gastrointestinal: Present: soft, non-tender, non-distended - Integumentary Integumentary: Present: clear, warm, dry - Neurologic Neurological: alert and oriented x3 - Labs CBC & Chem 7: 03/02/21 04:20 03/03/21 08:03 Labs: Laboratory Results - last 24 hr 03/02/21 03/03/21 03/03/21 14:35 08:03 08:03 PT 13.4 INR 1.03 Sodium 139 Potassium 3.8 Chloride 104.9 Carbon Dioxide 25 Anion Gap 13 BUN 6 L Creatinine 0.4 L Estimated GFR > 60 BUN/Creatinine Ratio 15 Glucose 78 Calcium 9.1 Total Bilirubin < 0.20 0.20 Direct Bilirubin < 0.2 < 0.2 Indirect Bilirubin 0.0 0.0 AST 12 21 ALT 12 13 Alkaline Phosphatase 48 49 Total Protein 6.3 7.1 Albumin 3.5 L 3.7 L Albumin/Globulin Ratio 1.3 1.1
--- NOTE | 2021-03-03 13:45 | Progress Note ---
Assessment and Plan Patient is a 30-year-old female with known history of depression brought into the emergency room with drug overdose. Patient reportedly took 60 tablets of 500 mg acetaminophen and 50 tablets of 20 mg Vistaril. Indicated that she wanted to end her life and does not want to live anymore and has been depressed. Upon arrival in the emergency room patient was given some activated charcoal. Poison control was also notified and recommendations were given for administration of acetylcysteine. Patient is being admitted with drug overdose with attempted suicide. Patient alert and awake. No complaint of chest pain, SOB, or cough. Patient afebrile, no leukocytosis. - Patient Problems (1) MDD (major depressive disorder), recurrent episode, severe Current Visit: Yes Status: Acute Plan to address problem: Recommend to consult Psychiatry. (2) Overdose of acetaminophen Current Visit: Yes Status: Acute Qualifiers: Encounter type: initial encounter Injury intent: intentional self-harm Qualified Code(s): T39.1X2A - Poisoning by 4-Aminophenol derivatives, intentional self-harm, initial encounter Plan to address problem: Patient given acetylcysteine and activated charcoal. Repeat acetaminophen level was 5.0. (3) Suicide attempt by acetaminophen overdose Current Visit: Yes Status: Acute Qualifiers: Encounter type: initial encounter Qualified Code(s): T39.1X2A - Poisoning by 4-Aminophenol derivatives, intentional self-harm, initial encounter Plan to address problem: Management as per Psychiatry. Subjective Date of service: 03/03/21 Principal diagnosis: Tylenol OD Interval history: Patient is a 30-year-old female with known history of depression brought into the emergency room with drug overdose. Patient reportedly took 60 tablets of 500 mg acetaminophen and 50 tablets of 20 mg Vistaril. Indicated that she wanted to end her life and does not want to live anymore and has been depressed. Upon arrival in the emergency room patient was given some activated charcoal. Poison control was also notified and recommendations were given for administration of acetylcysteine. Patient is being admitted with drug overdose with attempted suicide. Patient alert and awake. No complaint of chest pain, SOB, or cough. Patient afebrile, no leukocytosis. Objective Vital Signs - 12hr 03/03/21 03/03/21 06:31 10:24 Temperature 98.2 F 98.7 F Pulse Rate 73 92 H Respiratory 12 18 Rate Blood Pressure 117/81 129/79 O2 Sat by Pulse 99 99 Oximetry Constitutional: no acute distress, alert Eyes: non-icteric ENT: oropharynx moist Neck: supple Effort: normal Ascultation: Bilateral: clear Percussion: Bilateral: not dull Tactile fremitus: Bilateral: normal Cardiovascular: regular rate and rhythm Gastrointestinal: normoactive bowel sounds, non-distended Integumentary: normal Extremities: no cyanosis Neurologic: normal mental status, non-focal exam Psychiatric: depressed CBC and BMP: 03/02/21 04:20 03/03/21 08:03 ABG, PT/INR, D-dimer: PT/INR, D-dimer PT 13.4 Sec. (12.2-14.9) 03/03/21 08:03 INR 1.03 (0.87-1.13) 03/03/21 08:03 Abnormal lab findings: Abnormal Labs 03/01/21 03/01/21 03/01/21 01:38 01:39 01:39 Hgb 8.5 L Hct 28.2 L MCV 66 L MCH 20 L RDW 18.3 H Lymph % (Auto) 44.1 H [place] % (Auto) Potassium 3.5 L Carbon Dioxide 15 L BUN 3 L Creatinine 0.4 L Albumin Ur Specific [place] 1.002 L Salicylates Acetaminophen Plasma/Serum Alcohol 03/01/21 03/01/21 03/01/21 01:39 01:39 04:40 Hgb Hct MCV MCH RDW Lymph % (Auto) [place] % (Auto) Potassium Carbon Dioxide BUN Creatinine Albumin Ur Specific [place] Salicylates < 0.3 L Acetaminophen 181.4 H 115.4 H Plasma/Serum Alcohol 03/01/21 03/02/21 03/02/21 04:40 00:40 00:40 Hgb Hct MCV MCH RDW Lymph % (Auto) [place] % (Auto) Potassium Carbon Dioxide BUN 4 L Creatinine 0.3 L Albumin 3.8 L Ur Specific [place] Salicylates Acetaminophen 5.0 L Plasma/Serum Alcohol 0.16 H 03/02/21 03/02/21 03/02/21 04:20 04:20 14:35 Hgb 7.6 L Hct 25.2 L MCV 66 L MCH 20 L RDW 18.2 H Lymph % (Auto) 45.3 H [place] % (Auto) 9.0 H Potassium 3.3 L Carbon Dioxide BUN 4 L Creatinine 0.4 L Albumin 3.5 L Ur Specific [place] Salicylates Acetaminophen Plasma/Serum Alcohol 03/03/21 08:03 Hgb Hct MCV MCH RDW Lymph % (Auto) [place] % (Auto) Potassium Carbon Dioxide BUN 6 L Creatinine 0.4 L Albumin 3.7 L Ur Specific [place] Salicylates Acetaminophen Plasma/Serum Alcohol
[2021-03-04] MEDS: HEPARIN 5,000 UNIT/1 ML VIAL SUB-Q SCH ×4 (05:28→22:18)
--- NOTE | 2021-03-04 08:59 | Progress Note ---
Assessment and Plan Assessment and plan: Acetaminophen overdose. Suicide attempt/ideation. EtOH abuse. 03/02: Acetaminophen level on admission (03/01) was 181 and 115 3 hours later. Acetaminophen this morning at 1 AM 5.0. Check LFTs and consult GI for further evaluation. Continue Acetadote. Psychiatry following 03/03: Follow-up LFTs as patient is likely stable from liver/GI standpoint. Continue 1013. Await psychiatry recommendations for disposition. 03/04/2021; patient was evaluated by psych and recommend inpatient psych. Patient is medically stable for discharge whenever psych transfer center. History Interval history: Patient was seen and evaluated this morning Patient does not have any complaints Denied suicidal or homicidal ideation Hospitalist Physical - Physical exam Narrative exam: Not in cardiopulmonary distress. The patient appeared well nourished and normally developed. Vital signs as documented. Head exam is unremarkable. No scleral icterus . Neck is without jugular venous distension, thyromegaly, or carotid bruits. Lungs are clear to auscultation. Cardiac exam reveals regular rate and Rhythm. Abdominal exam reveals normal bowel sounds, nontender, no organomegaly. Extremities are nonedematous and both femoral and pedal pulses are normal. 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 No focal weakness. - Constitutional Vitals: Temp Pulse Resp BP Pulse Ox 98.4 F 77 16 120/74 100 03/04/21 05:05 03/04/21 05:05 03/04/21 05:05 03/04/21 05:05 03/04/21 05:05 General appearance: Present: no acute distress, well-nourished Results - Labs CBC & Chem 7: 03/02/21 04:20 03/03/21 08:03 Labs: Laboratory Last Values WBC 6.3 K/mm3 (4.5-11.0) 03/02/21 04:20 RBC 3.81 M/mm3 (3.65-5.03) 03/02/21 04:20 Hgb 7.6 gm/dl (10.1-14.3) L 03/02/21 04:20 Hct 25.2 % (30.3-42.9) L 03/02/21 04:20 MCV 66 fl (79-97) L 03/02/21 04:20 MCH 20 pg (28-32) L 03/02/21 04:20 MCHC 30 % (30-34) 03/02/21 04:20 RDW 18.2 % (13.2-15.2) H 03/02/21 04:20 Plt Count 375 K/mm3 (140-440) 03/02/21 04:20 Lymph % (Auto) 45.3 % (13.4-35.0) H 03/02/21 04:20 [place] % (Auto) 9.0 % (0.0-7.3) H 03/02/21 04:20 Eos % (Auto) 1.9 % (0.0-4.3) 03/02/21 04:20 Baso % (Auto) 0.5 % (0.0-1.8) 03/02/21 04:20 Lymph # (Auto) 2.9 K/mm3 (1.2-5.4) 03/02/21 04:20 [place] # (Auto) 0.6 K/mm3 (0.0-0.8) 03/02/21 04:20 Eos # (Auto) 0.1 K/mm3 (0.0-0.4) 03/02/21 04:20 Baso # (Auto) 0.0 K/mm3 (0.0-0.1) 03/02/21 04:20 Seg Neutrophils % 43.3 % (40.0-70.0) 03/02/21 04:20 Seg Neutrophils # 2.7 K/mm3 (1.8-7.7) 03/02/21 04:20 PT 13.4 Sec. (12.2-14.9) 03/03/21 08:03 INR 1.03 (0.87-1.13) 03/03/21 08:03 APTT 30.8 Sec. (24.2-36.6) 03/01/21 01:47 Sodium 139 mmol/L (137-145) 03/03/21 08:03 Potassium 3.8 mmol/L (3.6-5.0) 03/03/21 08:03 Chloride 104.9 mmol/L (98-107) 03/03/21 08:03 Carbon Dioxide 25 mmol/L (22-30) 03/03/21 08:03 Anion Gap 13 mmol/L 03/03/21 08:03 BUN 6 mg/dL (7-17) L 03/03/21 08:03 Creatinine 0.4 mg/dL (0.6-1.2) L 03/03/21 08:03 Estimated GFR > 60 ml/min 03/03/21 08:03 BUN/Creatinine Ratio 15 % 03/03/21 08:03 Glucose 78 mg/dL (65-100) 03/03/21 08:03 Calcium 9.1 mg/dL (8.4-10.2) 03/03/21 08:03 Total Bilirubin 0.20 mg/dL (0.1-1.2) 03/03/21 08:03 Direct Bilirubin < 0.2 mg/dL (0-0.2) 03/03/21 08:03 Indirect Bilirubin 0.0 mg/dL 03/03/21 08:03 AST 21 units/L (5-40) 03/03/21 08:03 ALT 13 units/L (7-56) 03/03/21 08:03 Alkaline Phosphatase 49 units/L (35-129) 03/03/21 08:03 Total Protein 7.1 g/dL (6.3-8.2) 03/03/21 08:03 Albumin 3.7 g/dL (3.9-5) L 03/03/21 08:03 Albumin/Globulin Ratio 1.1 % 03/03/21 08:03 Urine Color Colorless (Yellow) 03/01/21 01:38 Urine Turbidity Clear (Clear) 03/01/21 01:38 Urine pH 6.0 (5.0-7.0) 03/01/21 01:38 Ur Specific [place] 1.002 (1.003-1.030) L 03/01/21 01:38 Urine Protein <15 mg/dl mg/dL (Negative) 03/01/21 01:38 Urine Glucose (UA) Neg mg/dL (Negative) 03/01/21 01:38 Urine Ketones Neg mg/dL (Negative) 03/01/21 01:38 Urine Blood Neg (Negative) 03/01/21 01:38 Urine Nitrite Neg (Negative) 03/01/21 01:38 Ur Reducing Substances Not Reportable 03/01/21 01:38 Urine Bilirubin Neg (Negative) 03/01/21 01:38 Urine Ictotest Not Reportable 03/01/21 01:38 Urine Urobilinogen < 2.0 mg/dL (<2.0) 03/01/21 01:38 Ur Leukocyte Esterase Neg (Negative) 03/01/21 01:38 Urine WBC (Auto) < 1.0 /HPF (0.0-6.0) 03/01/21 01:38 Urine RBC (Auto) 0.0 /HPF (0.0-6.0) 03/01/21 01:38 Urine HCG, Qual Negative (Negative) 03/01/21 01:38 Salicylates < 0.3 mg/dL (2.8-20.0) L 03/01/21 01:39 Urine Opiates Screen Presumptive negative 03/01/21 01:38 Urine Methadone Screen Presumptive negative 03/01/21 01:38 Acetaminophen 5.0 ug/mL (10.0-30.0) L 03/02/21 00:40 Ur Barbiturates Screen Presumptive negative 03/01/21 01:38 Ur Phencyclidine Scrn Presumptive negative 03/01/21 01:38 Ur Amphetamines Screen Presumptive negative 03/01/21 01:38 U Benzodiazepines Scrn Presumptive negative 03/01/21 01:38 Urine Cocaine Screen Presumptive negative 03/01/21 01:38 U Marijuana (THC) Screen Presumptive negative 03/01/21 01:38 Drugs of Abuse Note Disclamer 03/01/21 01:38 Plasma/Serum Alcohol 0.16 % (0-0.07) H 03/01/21 04:40 [place]/IV: Voiding Method Toilet Active Medications - Current Medications Current Medications: Generic Name Dose Route Start Last Admin Trade Name Freq PRN Reason Stop Dose Admin Heparin Sodium (Porcine) 5,000 unit 03/01/21 06:00 03/04/21 05:28 Heparin 5,000 Unit/1 Ml Vial SUB-Q 5,000 unit Q8HR ERLINDA Administration Magnesium Hydroxide 30 ml 03/01/21 04:21 Magnesium Hydroxide (Mom) Oral Liqd Udc PO Q4H PRN Constipation Multivitamins 1 each 03/02/21 11:00 03/03/21 09:33 Multivitamins ,Therapeutic Tab PO 1 each QDAY ERLINDA Administration Ondansetron HCl 4 mg 03/01/21 04:21 03/01/21 04:45 Ondansetron 4 Mg/2 Ml Inj IV 4 mg Q8H PRN Administration Nausea And Vomiting Sodium Chloride 10 ml 03/01/21 10:00 03/03/21 22:18 Sodium Chloride 0.9% 10 Ml Flush Syringe IV 10 ml BID ERLINDA Administration Sodium Chloride 10 ml 03/01/21 04:21 Sodium Chloride 0.9% 10 Ml Flush Syringe IV PRN PRN LINE FLUSH
[2021-03-04] MEDS: MULTIVITAMINS ,THERAPEUTIC TAB PO SCH (09:24)
--- NOTE | 2021-03-04 10:29 | Progress Note ---
Assessment and Plan Patient is a 30-year-old female with known history of depression brought into the emergency room with drug overdose. Patient reportedly took 60 tablets of 500 mg acetaminophen and 50 tablets of 20 mg Vistaril. Indicated that she wanted to end her life and does not want to live anymore and has been depressed. Upon arrival in the emergency room patient was given some activated charcoal. Poison control was also notified and recommendations were given for administration of acetylcysteine. Patient is being admitted with drug overdose with attempted suicide. Patient alert and awake. Patient is on room air. O2 saturation 100%. No compl aint of chest pain, SOB, or cough. Patient afebrile, no leukocytosis. Patient had chest x=ray 03/04/21. Chest x-ray reported no acute abnormality. Patient ABG done 03/04/21 on room air pH - 7.462 pCO2 - 31.6 PO2 - 106.5 HCO3 - 22.1 O2 Saturation - 98.4 - Patient Problems (1) MDD (major depressive disorder), recurrent episode, severe Current Visit: Yes Status: Acute Plan to address problem: Recommend to consult Psychiatry. (2) Overdose of acetaminophen Current Visit: Yes Status: Acute Qualifiers: Encounter type: initial encounter Injury intent: intentional self-harm Qualified Code(s): T39.1X2A - Poisoning by 4-Aminophenol derivatives, intentional self-harm, initial encounter Plan to address problem: Patient given acetylcysteine and activated charcoal. Repeat acetaminophen level was 5.0. (3) Suicide attempt by acetaminophen overdose Current Visit: Yes Status: Acute Qualifiers: Encounter type: initial encounter Qualified Code(s): T39.1X2A - Poisoning by 4-Aminophenol derivatives, intentional self-harm, initial encounter Plan to address problem: Management as per Psychiatry. Subjective Date of service: 03/04/21 Principal diagnosis: Tylenol OD Interval history: Patient is a 30-year-old female with known history of depression brought into the emergency room with drug overdose. Patient reportedly took 60 tablets of 500 mg acetaminophen and 50 tablets of 20 mg Vistaril. Indicated that she wanted to end her life and does not want to live anymore and has been depressed. Upon arrival in the emergency room patient was given some activated charcoal. Poison control was also notified and recommendations were given for administration of acetylcysteine. Patient is being admitted with drug overdose with attempted suicide. Patient alert and awake. Patient is on room air. O2 saturation 100%. No complaint of chest pain, SOB, or cough. Patient afebrile, no leukocytosis. Patient had chest x=ray 03/04/21. Chest x-ray reported no acute abnormality. Patient ABG done 03/04/21 on room air pH - 7.462 pCO2 - 31.6 PO2 - 106.5 HCO3 - 22.1 O2 Saturation - 98.4 Objective Vital Signs - 12hr 03/04/21 05:05 Temperature 98.4 F Pulse Rate 77 Respiratory 16 Rate Blood Pressure 120/74 O2 Sat by Pulse 100 Oximetry Constitutional: no acute distress, alert Eyes: non-icteric ENT: oropharynx moist Neck: supple Effort: normal Ascultation: Bilateral: clear Percussion: Bilateral: not dull Tactile fremitus: Bilateral: normal Cardiovascular: regular rate and rhythm Gastrointestinal: normoactive bowel sounds, non-distended Integumentary: normal Extremities: no cyanosis Neurologic: normal mental status, non-focal exam Psychiatric: depressed CBC and BMP: 03/02/21 04:20 03/05/21 00:06 ABG, PT/INR, D-dimer: PT/INR, D-dimer PT 13.4 Sec. (12.2-14.9) 03/03/21 08:03 INR 1.03 (0.87-1.13) 03/03/21 08:03 Abnormal lab findings: Abnormal Labs 03/01/21 03/01/21 03/01/21 01:38 01:39 01:39 Hgb 8.5 L Hct 28.2 L MCV 66 L MCH 20 L RDW 18.3 H Lymph % (Auto) 44.1 H [place] % (Auto) Potassium 3.5 L Carbon Dioxide 15 L BUN 3 L Creatinine 0.4 L Albumin Ur Specific [place] 1.002 L Salicylates Acetaminophen Plasma/Serum Alcohol 03/01/21 03/01/21 03/01/21 01:39 01:39 04:40 Hgb Hct MCV MCH RDW Lymph % (Auto) [place] % (Auto) Potassium Carbon Dioxide BUN Creatinine Albumin Ur Specific [place] Salicylates < 0.3 L Acetaminophen 181.4 H 115.4 H Plasma/Serum Alcohol 03/01/21 03/02/21 03/02/21 04:40 00:40 00:40 Hgb Hct MCV MCH RDW Lymph % (Auto) [place] % (Auto) Potassium Carbon Dioxide BUN 4 L Creatinine 0.3 L Albumin 3.8 L Ur Specific [place] Salicylates Acetaminophen 5.0 L Plasma/Serum Alcohol 0.16 H 03/02/21 03/02/21 03/02/21 04:20 04:20 14:35 Hgb 7.6 L Hct 25.2 L MCV 66 L MCH 20 L RDW 18.2 H Lymph % (Auto) 45.3 H [place] % (Auto) 9.0 H Potassium 3.3 L Carbon Dioxide BUN 4 L Creatinine 0.4 L Albumin 3.5 L Ur Specific [place] Salicylates Acetaminophen Plasma/Serum Alcohol 03/03/21 08:03 Hgb Hct MCV MCH RDW Lymph % (Auto) [place] % (Auto) Potassium Carbon Dioxide BUN 6 L Creatinine 0.4 L Albumin 3.7 L Ur Specific [place] Salicylates Acetaminophen Plasma/Serum Alcohol Chest x-ray: report reviewed, image reviewed Additional Studies: 03/04/21 CHEST 2 VIEWS INDICATION: Possible aspiration. COMPARISON: None. FINDINGS: Support devices: None. Heart: Within normal limits. Lungs: No acute air space or interstitial disease. Pleura: No significant pleural effusion. No pneumothorax. Additional findings: None. IMPRESSION: No acute abnormality.
--- NOTE | 2021-03-04 11:22 | XRay Report ---
CHEST 2 VIEWS INDICATION: Possible aspiration. COMPARISON: None. FINDINGS: Support devices: None. Heart: Within normal limits. Lungs: No acute air space or interstitial disease. Pleura: No significant pleural effusion. No pneumothorax. Additional findings: None. IMPRESSION: No acute abnormality. Signer Name: Migel Osullivan MD Signed: 03/04/2021 11:18 AM Workstation Name: [email or web address]
--- NOTE | 2021-03-04 12:44 | Electrocardiograph Report ---
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
[2021-03-05 04:28] LABS: C-Reactive Protein 0.1 mg/dL (0.00-1.30)
[2021-03-05 05:32] VITALS: BP 122/78
[2021-03-05] MEDS: HEPARIN 5,000 UNIT/1 ML VIAL SUB-Q SCH (05:41)
--- NOTE | 2021-03-05 09:10 | Progress Note ---
Subjective - Reason for Consult Consult date: 03/05/21 Reason for consult: mhe Requesting physician: LEOPOLDO BOWEN - Chief Complaint Chief complaint: Psych Progress Patient describes a good and stable mood, denies being depressed or excessively nervous. Patient eats and sleeps well. Patient denies panic attacks, recurrent nightmares or flashbacks. Patient denies symptoms suggestive of OCD or PTSD. Patient denies hallucinations, paranoia, thought interference and no features suggestive of hypomania or priyank. Patiently completely denies suicidal or homicidal thoughts. Patient states she just got promoted at her work, and if she missess work that could worsen her mental health. Patient appears well with bright affect. REVIEW OF SYSTEMS Constitutional: Negative for weight loss ENT: Negative for stridor Respiratory: Negative for cough or hemoptysis All other systems reviewed and are negative MENTAL STATUS EXAMINATION General Appearance and Behavior: Age appropriate, good hygiene, wearing appropriate clothes, good eye contact, cooperative polite with questioning. Cooperation: Participating/engaged Psychomotor Behavior: unremarkable and within normal limits Mood: "i feel better" Affect and affective range: congruent with mood Thought Process: Fluent/Logical, Thought Content: Within reality, Speech: Normal volume, Regular rate and rhythm, Intellectual Functioning: Average Suicidal Ideation: Denies SI Homicidal Ideation: Denies HI Impulse Control: Unimpaired Insight and Judgment: Normal insight and judgment, Memory: Normal, Attention: Normal, Orientation: Alert, oriented, Assessment and Plan - Psychiatric problem (1) MDD (major depressive disorder), recurrent episode, severe Current Visit: Yes Status: Acute F33.2 Treatment Plan NO psych meds until cleared by poison control MEDICATIONS: Risks, benefits and alternatives of medications discussed with the patient, questions answered and consent obtained from patient. PSYCHOTHERAPY: Supportive psychotherapy provided MEDICAL: Per primary team DELIRIUM PRECAUTIONS: Please re-orient patient frequently, keep lights on during the day, and minimize benzodiazepines and opiates as these medications could worsen patient's confusion. 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 Case discussed with Dr. Mosley who agrees with current disposition. Safety discharge LEGAL STATUS: 1013 rescinded FOLLOW-UP: Will sign off Thank you for the consult. Please contact with any questions and/or concerns. Mental Status Exam - Vital signs Last Vital Signs Temp 98.2 F 03/05/21 05:30 Pulse 71 03/05/21 05:30 Resp 20 03/05/21 05:30 BP 122/78 03/05/21 05:30 Pulse Ox 100 03/05/21 05:30 Assessment and Plan - Patient Problems (1) MDD (major depressive disorder), recurrent episode, severe Current Visit: Yes Status: Acute
[2021-03-05] MEDS ORDERED: FERROUS SULFATE 325 MG TAB PO SCH (09:18)
[2021-03-05] MEDS: MULTIVITAMINS ,THERAPEUTIC TAB PO SCH (09:28)
[2021-03-05 11:49] LABS: Iron 30 ug/dL (37-170); Total Iron Binding Capacity 442 mcg/dL (250-450)
--- NOTE | 2021-03-05 12:33 | Progress Note ---
Assessment and Plan Assessment and plan: Acetaminophen overdose. Suicide attempt/ideation. EtOH abuse. 03/02: Acetaminophen level on admission (03/01) was 181 and 115 3 hours later. Acetaminophen this morning at 1 AM 5.0. Check LFTs and consult GI for further evaluation. Continue Acetadote. Psychiatry following 03/03: Follow-up LFTs as patient is likely stable from liver/GI standpoint. Continue 1013. Await psychiatry recommendations for disposition. 03/04/2021; patient was evaluated by psych and recommend inpatient psych. Patient is medically stable for discharge whenever psych transfer center. 03/05/2021; patient is pending acceptance by inpatient psych facility. History Interval history: Patient was seen and evaluated this morning Patient does not have any complaints Denied suicidal or homicidal ideation Hospitalist Physical - Physical exam Narrative exam: Not in cardiopulmonary distress. The patient appeared well nourished and normally developed. Vital signs as documented. Head exam is unremarkable. No scleral icterus . Neck is without jugular venous distension, thyromegaly, or carotid bruits. Lungs are clear to auscultation. Cardiac exam reveals regular rate and Rhythm. Abdominal exam reveals normal bowel sounds, nontender, no organomegaly. Extremities are nonedematous and both femoral and pedal pulses are normal. 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 No focal weakness. - Constitutional Vitals: Temp Pulse Resp BP Pulse Ox 98.2 F 71 20 122/78 100 03/05/21 05:30 03/05/21 05:30 03/05/21 05:30 03/05/21 05:30 03/05/21 05:30 General appearance: Present: no acute distress, well-nourished Results - Labs CBC & Chem 7: 03/02/21 04:20 03/05/21 00:06 Labs: Laboratory Last Values WBC 6.3 K/mm3 (4.5-11.0) 03/02/21 04:20 RBC 3.81 M/mm3 (3.65-5.03) 03/02/21 04:20 Hgb 7.6 gm/dl (10.1-14.3) L 03/02/21 04:20 Hct 25.2 % (30.3-42.9) L 03/02/21 04:20 MCV 66 fl (79-97) L 03/02/21 04:20 MCH 20 pg (28-32) L 03/02/21 04:20 MCHC 30 % (30-34) 03/02/21 04:20 RDW 18.2 % (13.2-15.2) H 03/02/21 04:20 Plt Count 375 K/mm3 (140-440) 03/02/21 04:20 Lymph % (Auto) 45.3 % (13.4-35.0) H 03/02/21 04:20 [place] % (Auto) 9.0 % (0.0-7.3) H 03/02/21 04:20 Eos % (Auto) 1.9 % (0.0-4.3) 03/02/21 04:20 Baso % (Auto) 0.5 % (0.0-1.8) 03/02/21 04:20 Lymph # (Auto) 2.9 K/mm3 (1.2-5.4) 03/02/21 04:20 [place] # (Auto) 0.6 K/mm3 (0.0-0.8) 03/02/21 04:20 Eos # (Auto) 0.1 K/mm3 (0.0-0.4) 03/02/21 04:20 Baso # (Auto) 0.0 K/mm3 (0.0-0.1) 03/02/21 04:20 Seg Neutrophils % 43.3 % (40.0-70.0) 03/02/21 04:20 Seg Neutrophils # 2.7 K/mm3 (1.8-7.7) 03/02/21 04:20 PT 13.4 Sec. (12.2-14.9) 03/03/21 08:03 INR 1.03 (0.87-1.13) 03/03/21 08:03 APTT 30.8 Sec. (24.2-36.6) 03/01/21 01:47 D-Dimer 353.41 ng/mlDDU (0-234) H 03/05/21 00:06 ABG pH 7.462 (7.320-7.450) H 03/04/21 15:11 POC ABG pCO2 31.6 mmHg (32.0-48.0) L 03/04/21 15:11 POC ABG pO2 106.5 mmHg (83-108) 03/04/21 15:11 POC ABG HCO3 22.1 03/04/21 15:11 ABG O2 Saturation 98.4 (0-100) 03/04/21 15:11 POC ABG Base Excess -1.3 03/04/21 15:11 ABG Hemoglobin 8.4 (12.0-17.5) L 03/04/21 15:11 ABG Oxyhemoglobin 96.9 (94-98) 03/04/21 15:11 ABG Methemoglobin 0.3 (0.0-1.5) 03/04/21 15:11 ABG Sodium 136.2 mmol/L (136.0-145.0) 03/04/21 15:11 ABG Potassium 4.0 mmol/L (3.40-4.50) 03/04/21 15:11 ABG Chloride 107.0 mmol/L (98-107) 03/04/21 15:11 ABG Glucose 95 mg/dL (65-95) 03/04/21 15:11 Carboxyhemoglobin 1.2 (0.5-1.5) 03/04/21 15:11 FiO2 % 21.0 03/04/21 15:11 Sodium 139 mmol/L (137-145) 03/03/21 08:03 Potassium 3.8 mmol/L (3.6-5.0) 03/03/21 08:03 Chloride 104.9 mmol/L (98-107) 03/03/21 08:03 Carbon Dioxide 25 mmol/L (22-30) 03/03/21 08:03 Anion Gap 13 mmol/L 03/03/21 08:03 BUN 6 mg/dL (7-17) L 03/03/21 08:03 Creatinine 0.4 mg/dL (0.6-1.2) L 03/03/21 08:03 Estimated GFR > 60 ml/min 03/03/21 08:03 BUN/Creatinine Ratio 15 % 03/03/21 08:03 Glucose 90 mg/dL (65-100) 03/05/21 00:06 Calcium 9.1 mg/dL (8.4-10.2) 03/03/21 08:03 Iron 30 ug/dL (37-170) L 03/05/21 10:17 TIBC 442 mcg/dL (250-450) 03/05/21 10:17 Ferritin 7.4 ng/mL (10.0-200.0) L 03/05/21 00:06 Total Bilirubin 0.20 mg/dL (0.1-1.2) 03/03/21 08:03 Direct Bilirubin < 0.2 mg/dL (0-0.2) 03/03/21 08:03 Indirect Bilirubin 0.0 mg/dL 03/03/21 08:03 AST 21 units/L (5-40) 03/03/21 08:03 ALT 13 units/L (7-56) 03/03/21 08:03 Alkaline Phosphatase 49 units/L (35-129) 03/03/21 08:03 Lactate Dehydrogenase 169 units/L (91-180) 03/05/21 00:06 C-Reactive Protein 0.10 mg/dL (0.00-1.30) 03/05/21 00:06 Total Protein 7.1 g/dL (6.3-8.2) 03/03/21 08:03 Albumin 3.7 g/dL (3.9-5) L 03/03/21 08:03 Albumin/Globulin Ratio 1.1 % 03/03/21 08:03 Procalcitonin < 0.05 ng/mL (<0.15) 03/05/21 00:06 Arterial Blood Glucose 95 mg/dL (65-95) 03/04/21 15:11 Arterial Blood Ionized Calcium 4.9 mg/dL (4.6-5.3) 03/04/21 15:11 Urine Color Colorless (Yellow) 03/01/21 01:38 Urine Turbidity Clear (Clear) 03/01/21 01:38 Urine pH 6.0 (5.0-7.0) 03/01/21 01:38 Ur Specific [place] 1.002 (1.003-1.030) L 03/01/21 01:38 Urine Protein <15 mg/dl mg/dL (Negative) 03/01/21 01:38 Urine Glucose (UA) Neg mg/dL (Negative) 03/01/21 01:38 Urine Ketones Neg mg/dL (Negative) 03/01/21 01:38 Urine Blood Neg (Negative) 03/01/21 01:38 Urine Nitrite Neg (Negative) 03/01/21 01:38 Ur Reducing Substances Not Reportable 03/01/21 01:38 Urine Bilirubin Neg (Negative) 03/01/21 01:38 Urine Ictotest Not Reportable 03/01/21 01:38 Urine Urobilinogen < 2.0 mg/dL (<2.0) 03/01/21 01:38 Ur Leukocyte Esterase Neg (Negative) 03/01/21 01:38 Urine WBC (Auto) < 1.0 /HPF (0.0-6.0) 03/01/21 01:38 Urine RBC (Auto) 0.0 /HPF (0.0-6.0) 03/01/21 01:38 Urine HCG, Qual Negative (Negative) 03/01/21 01:38 Salicylates < 0.3 mg/dL (2.8-20.0) L 03/01/21 01:39 Urine Opiates Screen Presumptive negative 03/01/21 01:38 Urine Methadone Screen Presumptive negative 03/01/21 01:38 Acetaminophen 5.0 ug/mL (10.0-30.0) L 03/02/21 00:40 Ur Barbiturates Screen Presumptive negative 03/01/21 01:38 Ur Phencyclidine Scrn Presumptive negative 03/01/21 01:38 Ur Amphetamines Screen Presumptive negative 03/01/21 01:38 U Benzodiazepines Scrn Presumptive negative 03/01/21 01:38 Urine Cocaine Screen Presumptive negative 03/01/21 01:38 U Marijuana (THC) Screen Presumptive negative 03/01/21 01:38 Drugs of Abuse Note Disclamer 03/01/21 01:38 Plasma/Serum Alcohol 0.16 % (0-0.07) H 03/01/21 04:40 [place]/IV: Voiding Method Toilet Active Medications - Current Medications Current Medications: Generic Name Dose Route Start Last Admin Trade Name Freq PRN Reason Stop Dose Admin Ferrous Sulfate 325 mg 03/05/21 09:18 03/05/21 09:29 Ferrous Sulfate 325 Mg Tab PO 325 mg TID ERLINDA Administration Heparin Sodium (Porcine) 5,000 unit 03/01/21 06:00 03/05/21 05:41 Heparin 5,000 Unit/1 Ml Vial SUB-Q Not Given Q8HR ERLINDA Magnesium Hydroxide 30 ml 03/01/21 04:21 Magnesium Hydroxide (Mom) Oral Liqd Udc PO Q4H PRN Constipation Multivitamins 1 each 03/02/21 11:00 03/05/21 09:28 Multivitamins ,Therapeutic Tab PO 1 each QDAY ERLINDA Administration Ondansetron HCl 4 mg 03/01/21 04:21 03/01/21 04:45 Ondansetron 4 Mg/2 Ml Inj IV 4 mg Q8H PRN Administration Nausea And Vomiting Sodium Chloride 10 ml 03/01/21 10:00 03/05/21 09:28 Sodium Chloride 0.9% 10 Ml Flush Syringe IV 10 ml BID ERLINDA Administration Sodium Chloride 10 ml 03/01/21 04:21 Sodium Chloride 0.9% 10 Ml Flush Syringe IV PRN PRN LINE FLUSH
--- NOTE | 2021-03-05 15:14 | Discharge Summary ---
Providers - Providers Date of Admission: 03/01/21 03:33 Date of discharge: 03/05/21 Attending physician: LEOPOLDO BOWEN MD 03/01/21 04:26 Consult to Mental Health [CONS] Routine Reason For Exam: Depression, Drug Overdose, Suicide Attempt. 03/02/21 07:48 Consult to Physician [CONS] Routine Comment: Consulting Provider: SAMREEN DELUCA Physician Instructions: Reason For Exam: critical care management 03/02/21 08:36 Consult to Physician [CONS] Routine Comment: Consulting Provider: VICENTE MILLAN Physician Instructions: Reason For Exam: Tylenol overdose Primary care physician: [facility], [place] Hospitalization Reason for admission: Suicidal ideation, anemia, major depression Condition: Stable Hospital course: History of present illness: Patient is a 30-year-old female with known history of depression brought into the emergency room today by EMS with drug overdose. Patient a set of taking 60 tablets of 500 mg acetaminophen and 50 tablets of 20 mg Vistaril approximately 45 minutes prior to arrival in the emergency room. Patient's friends were said to have called EMS as patient had indicated that she wanted to end her life and does not want to live anymore. She has been depressed and just feels tired and wants to be left alone without getting any help. She appeared drowsy during this history and physical. Patient denies any fever or chills, no nausea vomiting, no abdominal pain, no chest pain or shortness of breath, no headache or dizziness. Denies any sick contacts or any recent travel. Denies any contact with anyone with COVID-19. Upon arrival in the emergency room patient was given some activated charcoal. Poison control was also notified and recommendations were given for administration of acetylcysteine. Patient is being admitted with drug overdose with attempted suicide. Hospital course Acetaminophen overdose. Suicide attempt/ideation. EtOH abuse. 03/02: Acetaminophen level on admission (03/01) was 181 and 115 3 hours later. Acetaminophen this morning at 1 AM 5.0. Check LFTs and consult GI for further evaluation. Continue Acetadote. Psychiatry following 03/03: Follow-up LFTs as patient is likely stable from liver/GI standpoint. Continue 1013. Await psychiatry recommendations for disposition. 03/04/2021; patient was evaluated by psych and recommend inpatient psych. Patient is medically stable for discharge whenever psych transfer center. 03/05/2021; patient is pending acceptance by inpatient psych facility. I have seen and evaluated the patient this morning, patient states she does not have any suicidal or homicidal ideation. Patient does not have any shortness of breath or chest pain. Patient was hemodynamically stable. Her hemoglobin was low and I put her on iron tablets at the time of discharge. Patient was cleared by psych for discharge. Patient advised to have follow-up with primary care physician and mental health. Patient's questions and concerns were addressed at the bedside. Disposition: DC-01 TO HOME OR SELFCARE Final Discharge Diagnosis (Prints w/discharge instructions): Tylenol overdose. Suicidal attempt. Anemia Time spent for discharge: 35 minutes - Discharge Diagnoses (1) MDD (major depressive disorder), recurrent episode, severe Status: Acute (2) Overdose of acetaminophen Status: Acute Qualifiers: Encounter type: initial encounter Injury intent: intentional self-harm Qualified Code(s): T39.1X2A - Poisoning by 4-Aminophenol derivatives, intentional self-harm, initial encounter (3) Suicidal ideations Status: Acute (4) Suicide attempt by acetaminophen overdose Status: Acute Qualifiers: Encounter type: initial encounter Qualified Code(s): T39.1X2A - Poisoning by 4-Aminophenol derivatives, intentional self-harm, initial encounter Core Measure Documentation - Palliative Care Palliative Care/ Comfort Measures: Not Applicable - Core Measures Any of the following diagnoses?: none Exam - Physical Exam Narrative exam: Not in cardiopulmonary distress. The patient appeared well nourished and normally developed. Vital signs as documented. Head exam is unremarkable. No scleral icterus . Neck is without jugular venous distension, thyromegaly, or carotid bruits. Lungs are clear to auscultation. Cardiac exam reveals regular rate and Rhythm. Abdominal exam reveals normal bowel sounds, nontender, no organomegaly. Extremities are nonedematous and both femoral and pedal pulses are normal. 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 No focal weakness. - Constitutional Vitals: Temp Pulse Resp BP Pulse Ox 98.2 F 71 20 122/78 100 03/05/21 05:30 03/05/21 05:30 03/05/21 05:30 03/05/21 05:30 03/05/21 05:30 Plan Activity: no restrictions Weight Bearing Status: Full Weight Bearing Diet: regular Additional Instructions: Patient was given resources to follow-up with outpatient mental health Follow up with: JOSEY RICHARDSON MD [Primary Care Provider] - 7 Days Forms: Work/School Excuse Out Patient, Work/School Release Form Prescriptions: Ferrous Sulfate [Feosol 325 MG tab] 325 mg PO TID #90 tablet Sertraline [Zoloft] 50 mg PO QDAY #30 tablet
--- NOTE | 2021-03-05 16:47 | Progress Note ---
Assessment and Plan Patient left before I see the patient. - Patient Problems (1) MDD (major depressive disorder), recurrent episode, severe Status: Acute (2) Overdose of acetaminophen Status: Acute Qualifiers: Encounter type: initial encounter Injury intent: intentional self-harm Qualified Code(s): T39.1X2A - Poisoning by 4-Aminophenol derivatives, intentional self-harm, initial encounter (3) Suicide attempt by acetaminophen overdose Status: Acute Qualifiers: Encounter type: initial encounter Qualified Code(s): T39.1X2A - Poisoning by 4-Aminophenol derivatives, intentional self-harm, initial encounter Subjective Date of service: 03/05/21 Principal diagnosis: Tylenol OD Interval history: Patient left Before i see the patient. Objective Vital Signs - 12hr 03/05/21 05:30 Temperature 98.2 F Pulse Rate 71 Respiratory 20 Rate Blood Pressure 122/78 O2 Sat by Pulse 100 Oximetry Effort: normal Psychiatric: depressed CBC and BMP: 03/02/21 04:20 03/05/21 00:06 ABG, PT/INR, D-dimer: ABG ABG pH 7.462 (7.320-7.450) H 03/04/21 15:11 POC ABG pCO2 31.6 mmHg (32.0-48.0) L 03/04/21 15:11 POC ABG pO2 106.5 mmHg (83-108) 03/04/21 15:11 POC ABG HCO3 22.1 03/04/21 15:11 ABG O2 Saturation 98.4 (0-100) 03/04/21 15:11 PT/INR, D-dimer PT 13.4 Sec. (12.2-14.9) 03/03/21 08:03 INR 1.03 (0.87-1.13) 03/03/21 08:03 D-Dimer 353.41 ng/mlDDU (0-234) H 03/05/21 00:06 Abnormal lab findings: Abnormal Labs 03/01/21 03/01/21 03/01/21 01:38 01:39 01:39 Hgb 8.5 L Hct 28.2 L MCV 66 L MCH 20 L RDW 18.3 H Lymph % (Auto) 44.1 H [place] % (Auto) D-Dimer ABG pH POC ABG pCO2 ABG Hemoglobin Potassium 3.5 L Carbon Dioxide 15 L BUN 3 L Creatinine 0.4 L Iron Ferritin Albumin Ur Specific [place] 1.002 L Salicylates Acetaminophen Plasma/Serum Alcohol 03/01/21 03/01/21 03/01/21 01:39 01:39 04:40 Hgb Hct MCV MCH RDW Lymph % (Auto) [place] % (Auto) D-Dimer ABG pH POC ABG pCO2 ABG Hemoglobin Potassium Carbon Dioxide BUN Creatinine Iron Ferritin Albumin Ur Specific [place] Salicylates < 0.3 L Acetaminophen 181.4 H 115.4 H Plasma/Serum Alcohol 03/01/21 03/02/21 03/02/21 04:40 00:40 00:40 Hgb Hct MCV MCH RDW Lymph % (Auto) [place] % (Auto) D-Dimer ABG pH POC ABG pCO2 ABG Hemoglobin Potassium Carbon Dioxide BUN 4 L Creatinine 0.3 L Iron Ferritin Albumin 3.8 L Ur Specific [place] Salicylates Acetaminophen 5.0 L Plasma/Serum Alcohol 0.16 H 03/02/21 03/02/21 03/02/21 04:20 04:20 14:35 Hgb 7.6 L Hct 25.2 L MCV 66 L MCH 20 L RDW 18.2 H Lymph % (Auto) 45.3 H [place] % (Auto) 9.0 H D-Dimer ABG pH POC ABG pCO2 ABG Hemoglobin Potassium 3.3 L Carbon Dioxide BUN 4 L Creatinine 0.4 L Iron Ferritin Albumin 3.5 L Ur Specific [place] Salicylates Acetaminophen Plasma/Serum Alcohol 03/03/21 03/04/21 03/05/21 08:03 15:11 00:06 Hgb Hct MCV MCH RDW Lymph % (Auto) [place] % (Auto) D-Dimer 353.41 H ABG pH 7.462 H POC ABG pCO2 31.6 L ABG Hemoglobin 8.4 L Potassium Carbon Dioxide BUN 6 L Creatinine 0.4 L Iron Ferritin Albumin 3.7 L Ur Specific [place] Salicylates Acetaminophen Plasma/Serum Alcohol 03/05/21 03/05/21 00:06 10:17 Hgb Hct MCV MCH RDW Lymph % (Auto) [place] % (Auto) D-Dimer ABG pH POC ABG pCO2 ABG Hemoglobin Potassium Carbon Dioxide BUN Creatinine Iron 30 L Ferritin 7.4 L Albumin Ur Specific [place] Salicylates Acetaminophen Plasma/Serum Alcohol
== END 2021-03-05 17:30 | disposition home or self-care (01) | DRG 918 ==
LOC: ED 01:21 → CC1 03:33 → 3A 03-02 12:34
PROVIDERS: ADMIT Internal Medicine Geriatric Medicine; ATTEND Internal Medicine
DX: T39.1X2A Poisoning by 4-Aminophenol derivatives, intentional self-harm, initial encounter (principal); F33.2 Major depressive disorder, recurrent severe without psychotic features; T14.91XA Suicide attempt, initial encounter; F10.10 Alcohol abuse, uncomplicated; F41.9 Anxiety disorder, unspecified; F14.10 Cocaine abuse, uncomplicated; F12.10 Cannabis abuse, uncomplicated; Z79.891 Long term (current) use of opiate analgesic; Z79.899 Other long term (current) drug therapy; Z79.01 Long term (current) use of anticoagulants
CPT/HCPCS: 36415; 36600; 71046; 80048; 80053; 80076; 80307; 80320; 81001; 81025; 82728; 82805; 82947; 83550; 83615; 84145; 85025; 85379; 85610; 85730; 86140; 93005; 99406; G0378; G0480; J0132; J1644; J2405; J3480; J7030; J7060; J7070; U0003

== ENCOUNTER 2021-07-15 09:26 | Emergency (ER) | payer SELFPAY ==
[2021-07-15 10:36] VITALS: BP 161/84
--- NOTE | 2021-07-15 10:59 | Emergency Department Report ---
ED ENT HPI - General Chief complaint: Dental/Oral Stated complaint: TOOTH ABCESS Time Seen by Provider: 07/15/21 10:49 Source: patient Mode of arrival: Ambulatory Limitations: No Limitations - History of Present Illness Initial comments: Patient presented with a 2-day history of dental pain and swelling. This is primarily involving the left mandibular area. She has had a cracked tooth for a long time. She does not recall biting into anything or injuring her tooth further. She noticed increasing pain. She has noticed temperature sensitivity. Today and yesterday, she noticed some buccal swelling in the left side of her mandible. There was no trauma. She has no fevers or chills per there is no cough or congestion. She has had no vomiting or diarrhea. Patient tried to get into a dentist, but they were not excepting walk-ins. She came here instead. She has not been on antibiotics lately for anything. Pain is worsened by eating and palpation. There have been no alleviating factors. She has used [id number] Tylenol. - Related Data Previous Rx's Medication Instructions Recorded Last Taken Type Ferrous Sulfate [Feosol 325 MG tab] 325 mg PO TID #90 tablet 03/05/21 Unknown Rx Sertraline [Zoloft] 50 mg PO QDAY #30 tablet 03/05/21 Unknown Rx Ibuprofen [Motrin 600 MG tab] 600 mg PO Q8H PRN #20 tablet 07/15/21 Unknown Rx clindamycin HCL [Clindamycin cap] 300 mg PO 4XD #60 capsule 07/15/21 Unknown Rx Allergies Allergy/AdvReac Type Severity Reaction Status Date / Time No Known Allergies Allergy Unverified 03/01/21 01:37 ED Dental HPI - General Chief complaint: Dental/Oral Stated complaint: TOOTH ABCESS Time Seen by Provider: 07/15/21 10:49 Source: patient Mode of arrival: Ambulatory Limitations: No Limitations - Related Data Previous Rx's Medication Instructions Recorded Last Taken Type Ferrous Sulfate [Feosol 325 MG tab] 325 mg PO TID #90 tablet 03/05/21 Unknown Rx Sertraline [Zoloft] 50 mg PO QDAY #30 tablet 03/05/21 Unknown Rx Ibuprofen [Motrin 600 MG tab] 600 mg PO Q8H PRN #20 tablet 07/15/21 Unknown Rx clindamycin HCL [Clindamycin cap] 300 mg PO 4XD #60 capsule 07/15/21 Unknown Rx Allergies Allergy/AdvReac Type Severity Reaction Status Date / Time No Known Allergies Allergy Unverified 03/01/21 01:37 ED Review of Systems ROS: Stated complaint: TOOTH ABCESS Other details as noted in HPI Comment: All other systems reviewed and negative Constitutional: denies: fever Eyes: denies: eye pain ENT: denies: ear pain, throat pain Respiratory: denies: cough Cardiovascular: denies: chest pain Endocrine: denies: unexplained weight loss Gastrointestinal: denies: abdominal pain Genitourinary: denies: dysuria Musculoskeletal: denies: back pain Skin: denies: rash Neurological: denies: headache Hematological/Lymphatic: denies: easy bruising ED Past Medical Hx - Past Medical History Previous Medical History?: Yes Hx Psychiatric Treatment: Yes - Surgical History Past Surgical History?: Yes Hx Appendectomy: Yes Additional Surgical History: x 5 - Family History Family history: no significant - Social History Smoking Status: Current Every Day Smoker - Medications Home Medications: Home Medications Medication Instructions Recorded Confirmed Last Taken Type Ferrous Sulfate [Feosol 325 MG tab] 325 mg PO TID #90 tablet 03/05/21 Unknown Rx Sertraline [Zoloft] 50 mg PO QDAY #30 tablet 03/05/21 Unknown Rx Ibuprofen [Motrin 600 MG tab] 600 mg PO Q8H PRN #20 tablet 07/15/21 Unknown Rx clindamycin HCL [Clindamycin cap] 300 mg PO 4XD #60 capsule 07/15/21 Unknown Rx ED Physical Exam - General Limitations: No Limitations General appearance: alert, in no apparent distress - Head Head exam: Present: atraumatic, other (There is left mandibular swelling with tenderness to palpation. There is no induration.) - Eye Eye exam: Present: normal appearance, EOMI. Absent: scleral icterus - ENT ENT exam: Present: mucous membranes moist, other (There is dental tenderness with palpation over the left lower mandible teeth. There is no gingival erythema or edema noted. There is buccal swelling. There is no induration.) - Neck Neck exam: Present: full ROM, lymphadenopathy (Left anterior cervical lymphadenopathy). Absent: meningismus - Respiratory Respiratory exam: Present: normal lung sounds bilaterally. Absent: respiratory distress - Cardiovascular Cardiovascular Exam: Present: regular rate, normal rhythm - GI/Abdominal GI/Abdominal exam: Present: soft - Extremities Exam Extremities exam: Present: normal capillary refill - Back Exam Back exam: Present: full ROM - Neurological Exam Neurological exam: Present: alert, oriented X3, normal gait. Absent: motor sensory deficit - Psychiatric Psychiatric exam: Present: normal affect, normal mood - Skin Skin exam: Present: warm, dry ED Course Vital Signs 07/15/21 10:32 Temperature 98 F Pulse Rate 84 Respiratory 16 Rate Blood Pressure 161/84 [Left] O2 Sat by Pulse 97 Oximetry - Reevaluation(s) Reevaluation #1: 07/15/21 11:04 Patient was treated for her buccal cellulitis and referred to her dentist. ED Medical Decision Making - Medical Decision Making Patient presented with an odontogenic infection and buccal cellulitis. She does not have any evidence of drainable abscess. She does not appear to be septic or toxic. There is no crossing of the midline to suggest Servando angina. Patient was treated empirically with clindamycin and analgesics. She was referred to her dentist. Critical Care Time: No Critical care attestation.: If time is entered above; I have spent that time in minutes in the direct care of this critically ill patient, excluding procedure time. ED Disposition Clinical Impression: Apical alveolar abscess, Cellulitis of buccal space of mouth Disposition: 01 HOME / SELF CARE / HOMELESS Is pt being admited?: No Does the pt Need Aspirin: No Condition: Stable Instructions: Cellulitis, Adult, Dental Abscess Additional Instructions: Have a soft diet. See a dentist as soon as possible. Drink plenty of water. Return for problems. Follow-up as discussed and directed. Continue Tylenol for fever. Prescriptions: clindamycin HCL [Clindamycin cap] 300 mg PO 4XD #60 capsule Ibuprofen [Motrin 600 MG tab] 600 mg PO Q8H PRN #20 tablet PRN Reason: Pain
== END 2021-07-15 11:23 | disposition home or self-care (01) ==
LOC: ED 09:26
DX: K04.6 Periapical abscess with sinus (principal); K12.2 Cellulitis and abscess of mouth; Z98.890 Other specified postprocedural states; F17.200 Nicotine dependence, unspecified, uncomplicated
CPT/HCPCS: 99281

== ENCOUNTER 2022-06-24 17:41 | Emergency (ER) | payer OTHER ==
[2022-06-24 18:44] VITALS: BP 110/57
== END 2022-06-25 00:31 | disposition left against medical advice (07) ==
LOC: ED 17:41
DX: S39.82XA Other specified injuries of lower back, initial encounter (principal); Z53.21 Procedure and treatment not carried out due to patient leaving prior to being seen by health care provider; X58.XXXA Exposure to other specified factors, initial encounter; Y93.89 Activity, other specified; Y92.89 Other specified places as the place of occurrence of the external cause; Y99.8 Other external cause status